=== PATIENT | male | born 1935 | race Caucasian/White ===

== ENCOUNTER 2018-09-20 12:14 | Emergency (ER) | payer MEDICARE, BC ==
[2018-09-20 12:22] VITALS: BP 108/69
[2018-09-20] MEDS ORDERED: Oxymetazoline 0.05% Nasal Spray 15 ML Bottle NAS ONE (12:58)
--- NOTE | 2018-09-20 15:52 | EDM.PDOC ---
ED HPI GENERAL MEDICAL PROBLEM - General Chief Complaint: ENT Problem Stated Complaint: NOSEBLEED Time Seen by Provider: 09/20/18 12:45 Source of Information: Reports: Patient History Limitations: Reports: No Limitations - History of Present Illness INITIAL COMMENTS - FREE TEXT/NARRATIVE: Pt. presents to ER with complaints of epistaxis from L nare. Pt. states that the bleeding started spontaneously this AM. Denies any trauma to the nose. Denies any lightheadedness or shortness of breath. No nausea or vomiting. He states that he occasionally gets nosebleeds but this one has lasted a long time. Pt. INR was 2.0 when it was checked earlier this week. He also takes plavix as well. Onset: Today Onset Date: 09/20/18 Location: Reports: Generalized - Related Data Allergies Allergy/AdvReac Type Severity Reaction Status Date / Time No Known Allergies Allergy Verified 09/20/18 12:18 Home Meds: Home Meds Arginine [l-Arginine] 1,500 mg PO DAILY 01/15/14 [History] Calcium Carbonate [Calcium] 500 mg PO DAILY 01/15/14 [History] Furosemide [Lasix] 40 mg PO BID 01/15/14 [History] Magnesium Oxide 500 mg PO DAILY 01/15/14 [History] Vit B Cmplx 3/Fa/Vit C/Biotin [Digna-Ashley Rx Tablet] 1 each PO DAILY 01/15/14 [ History] Warfarin [Coumadin] 5 mg PO DAILY 01/15/14 [History] atorvaSTATin [Lipitor] 10 mg PO DAILY 01/15/14 [History] Carvedilol [Coreg] 6.25 mg PO BID 02/18/14 [History] Lisinopril [Prinivil] 2.5 mg PO DAILY 04/03/14 [History] Clopidogrel [Plavix] 75 mg PO DAILY 10/16/16 [History] Nitroglycerin [Nitrolingual] 0.4 - 0.8 mg SL ASDIRECTED PRN 10/16/16 [History] Amoxicillin 2,000 mg PO ASDIRECTED 01/09/17 [History] Carboxymethylcellulose Sodium [Refresh Celluvisc] 1 drop EYEBOTH ASDIRECTED PRN 01/09/17 [History] Multivitamin with Minerals [Multiple Vitamin] 1 tab PO DAILY 01/09/17 [History] Ubidecarenone [Co Q-10] 200 mg PO BID 01/09/17 [History] cycloSPORINE [Restasis] 1 drop EYEBOTH DAILY 01/09/17 [History] Isosorbide Mononitrate [Imdur] 15 mg PO BID 09/04/18 [History] Past Medical History Cardiovascular History: Reports: Bypass, CAD, Heart Failure, High Cholesterol, Hypertension Respiratory History: Reports: Other (See Below) Other Respiratory History: Pneumonia Genitourinary History: Reports: Prostate Disorder - Past Surgical History Cardiovascular Surgical History: Reports: Pacer, Valve Replacement Social & Family History - Tobacco Use Smoking Status *Q: Unknown Ever Smoked ED ROS GENERAL - Review of Systems Review Of Systems: See Below Constitutional: Reports: No Symptoms HEENT: Reports: Nosebleed Respiratory: Reports: No Symptoms Cardiovascular: Reports: No Symptoms Endocrine: Reports: No Symptoms GI/Abdominal: Reports: No Symptoms : Reports: No Symptoms Musculoskeletal: Reports: No Symptoms Skin: Reports: No Symptoms Neurological: Reports: No Symptoms Psychiatric: Reports: No Symptoms Hematologic/Lymphatic: Reports: No Symptoms Immunologic: Reports: No Symptoms ED EXAM, GENERAL - Physical Exam Exam: See Below Exam Limited By: No Limitations General Appearance: Alert, WD/WN, No Apparent Distress Nose: Other (epistaxis from L nare) Throat/Mouth: Normal Inspection, Normal Lips, Normal Teeth, Normal Gums, Normal Oropharynx, Normal Voice, No Airway Compromise ED GENERAL MEDICAL PROCEDURES - Additional/Other Procedure(s) Other (Free Text) Procedure(s): area of bleeding to lateral aspect of L nare. This was cauterized with silver nitrate. Afrin nasal spray was instilled in the nare prior to this. The area continued to bleed. It was subsequently packed with 1 in gauze ribbon. This bled through. This was removed. 5.5 cm rapid rhino placed in L nare. bleeding was controlled with this. Course - Vital Signs Last Recorded V/S: Last Vital Signs Temp 35.1 C L 09/20/18 12:20 Pulse 90 09/20/18 12:20 Resp 18 09/20/18 12:20 BP 108/69 09/20/18 12:20 Pulse Ox 94 L 09/20/18 12:20 - Orders/Labs/Meds Meds: Medications Discontinued Medications Generic Name Dose Route Start Last Admin Trade Name Freq PRN Reason Stop Dose Admin Oxymetazoline HCl 1 ml 09/20/18 12:58 09/20/18 13:02 Afrin Original 0.05% Nasal [place] TYESHA 09/20/18 12:59 2 spray ONETIME ONE Administration Departure - Departure Time of Disposition: 15:30 Disposition: Home, Self-Care 01 Condition: Good Clinical Impression: Epistaxis - Discharge Information Instructions: Nosebleed, Adult Referrals: Ciera Quiroz, [Primary Care Provider] - Forms: ED Department Discharge Additional Instructions: Return to ER tomorrow afternoon to have nose packing removed. Sleep with head elevated tonight. Recheck in clinic in 7-10 days. If you are continuing to have frequent nosebleeds, you may need to see ENT to address it. You do have some superficial blood vessels in your nose. - Assessment/Plan Plan: Return to ER tomorrow afternoon to have nose packing removed. Sleep with head elevated tonight. Recheck in clinic in 7-10 days. If you are continuing to have frequent nosebleeds, you may need to see ENT to address it. You do have some superficial blood vessels in your nose.
== END 2018-09-20 14:02 | disposition home or self-care (01) ==
LOC: VM.ED 12:14
DX: R04.0 Epistaxis (principal); I11.0 Hypertensive heart disease with heart failure; I50.9 Heart failure, unspecified; Z95.1 Presence of aortocoronary bypass graft; I25.10 Atherosclerotic heart disease of native coronary artery without angina pectoris; Z79.01 Long term (current) use of anticoagulants; Z79.899 Other long term (current) drug therapy
CPT/HCPCS: 30903; 99283; A9270; 30901

== ENCOUNTER 2018-09-21 12:03 | Emergency (ER) | payer MEDICARE, BC ==
[2018-09-21 12:39] VITALS: BP 108/63
[2018-09-21] MEDS ORDERED: Take Home: Ondansetron 4 MG Tab.DIS, 2 Tab Pack PO ONE (13:16)
--- NOTE | 2018-09-21 13:22 | EDM.PDOC ---
ED HPI GENERAL MEDICAL PROBLEM - General Chief Complaint: Gastrointestinal Problem Stated Complaint: NAUSEA Time Seen by Provider: 09/21/18 13:00 Source of Information: Reports: Patient History Limitations: Reports: No Limitations - History of Present Illness INITIAL COMMENTS - FREE TEXT/NARRATIVE: patient comes into the emergency department with complaint of nausea. Patient was in the emergency department approximately 24 hours ago for a nosebleed and needed nasal packing. Patient states ever since the nasal packing was placed he has had nausea. He believes it is related to the blood that has trickled back in the back of his throat. He denies any vomiting, fever,chest pain, shortness of breath, or fevers. He feels that the bleeding has almost stopped in the back of his nose however, he is still getting a takes of blood tinge in the back of the mouth. Onset: Gradual Severity: Mild Improves with: Reports: None Worsens with: Reports: None Associated Symptoms: Reports: No Other Symptoms - Related Data Allergies Allergy/AdvReac Type Severity Reaction Status Date / Time No Known Allergies Allergy Verified 09/21/18 12:33 Home Meds: Home Meds Arginine [l-Arginine] 1,500 mg PO DAILY 01/15/14 [History] Calcium Carbonate [Calcium] 500 mg PO DAILY 01/15/14 [History] Furosemide [Lasix] 40 mg PO BID 01/15/14 [History] Magnesium Oxide 500 mg PO DAILY 01/15/14 [History] Vit B Cmplx 3/Fa/Vit C/Biotin [Digna-Ashley Rx Tablet] 1 each PO DAILY 01/15/14 [ History] Warfarin [Coumadin] 5 mg PO DAILY 01/15/14 [History] atorvaSTATin [Lipitor] 10 mg PO DAILY 01/15/14 [History] Carvedilol [Coreg] 6.25 mg PO BID 02/18/14 [History] Lisinopril [Prinivil] 2.5 mg PO DAILY 04/03/14 [History] Clopidogrel [Plavix] 75 mg PO DAILY 10/16/16 [History] Nitroglycerin [Nitrolingual] 0.4 - 0.8 mg SL ASDIRECTED PRN 10/16/16 [History] Amoxicillin 2,000 mg PO ASDIRECTED 01/09/17 [History] Carboxymethylcellulose Sodium [Refresh Celluvisc] 1 drop EYEBOTH ASDIRECTED PRN 01/09/17 [History] Multivitamin with Minerals [Multiple Vitamin] 1 tab PO DAILY 01/09/17 [History] Ubidecarenone [Co Q-10] 200 mg PO BID 01/09/17 [History] cycloSPORINE [Restasis] 1 drop EYEBOTH DAILY 01/09/17 [History] Isosorbide Mononitrate [Imdur] 15 mg PO BID 09/04/18 [History] Past Medical History Cardiovascular History: Reports: Bypass, CAD, Heart Failure, High Cholesterol, Hypertension Respiratory History: Reports: Other (See Below) Other Respiratory History: Pneumonia Genitourinary History: Reports: Prostate Disorder - Past Surgical History Cardiovascular Surgical History: Reports: Pacer, Valve Replacement Social & Family History - Tobacco Use Smoking Status *Q: Former Smoker Used Tobacco, but Quit: Yes Month/Year Tobacco Last Used: 1969 ED ROS GENERAL - Review of Systems Review Of Systems: ROS reveals no pertinent complaints other than HPI. Constitutional: Reports: No Symptoms HEENT: Reports: No Symptoms Respiratory: Reports: No Symptoms Cardiovascular: Reports: No Symptoms GI/Abdominal: Reports: Nausea : Reports: No Symptoms Musculoskeletal: Reports: No Symptoms Skin: Reports: No Symptoms Neurological: Reports: No Symptoms Psychiatric: Reports: No Symptoms Hematologic/Lymphatic: Reports: No Symptoms ED EXAM, GENERAL - Physical Exam Exam: See Below Exam Limited By: No Limitations General Appearance: Alert, WD/WN, No Apparent Distress Ears: Normal External Exam, Normal Canal Nose: Nasal Drainage, Clear Rhinorrhea, Other (nasal packing in left nare. no drainage/dripping noted. ) Throat/Mouth: Normal Inspection, Normal Oropharynx, Normal Voice Head: Atraumatic, Normocephalic Neck: Normal Inspection, Supple, Non-Tender, Full Range of Motion Respiratory/Chest: No Respiratory Distress, Lungs Clear Cardiovascular: Normal Peripheral Pulses, Regular Rate, Rhythm Course - Vital Signs Last Recorded V/S: Last Vital Signs Temp 35.6 C 09/21/18 12:33 Pulse 93 09/21/18 12:33 Resp 18 09/21/18 12:33 BP 108/63 09/21/18 12:33 Pulse Ox 95 09/21/18 12:33 - Orders/Labs/Meds Orders: Active Orders 24 hr Category Date Time Status Ondansetron [Take Home: Ondansetron ODT 4 MG, 2 Tab Med 09/21/18 13:16 Once Pack] 2 packet PO ONETIME ONE Medication Orders Ondansetron HCl (Take Home: Ondansetron Odt 4 Mg, 2 Tab Pack) 2 packet PO ONETIME ONE Stop: 09/21/18 13:17 Meds: Medications Generic Name Dose Route Start Last Admin Trade Name Elvira PRN Reason Stop Dose Admin Ondansetron HCl 2 packet 09/21/18 13:16 Take Home: Ondansetron Odt 4 Mg, 2 Tab Pack PO 09/21/18 13:17 ONETIME ONE Departure - Departure Time of Disposition: 13:20 Disposition: Home, Self-Care 01 Condition: Good Clinical Impression: Nausea alone - Discharge Information *PRESCRIPTION DRUG MONITORING PROGRAM REVIEWED*: Not Applicable *COPY OF PRESCRIPTION DRUG MONITORING REPORT IN PATIENT CHARLEY: Not Applicable Instructions: Nausea, Adult Referrals: Ciera Quiroz DO [Primary Care Provider] - Additional Instructions: 1. Will remove the nasal bandage tomorrow. 2. rest 3. If you feel blood in the back of the throat spit out and do not swallow as much as possible. 4. Take anti-nausea medication as needed 1 tablet every 6 hours only if nauseated. 5. Call with any questions or concerns - Problem List Review Problem List Initiated/Reviewed/Updated: Yes - My Orders Last 24 Hours: My Active Orders 09/21/18 13:16 Ondansetron [Take Home: Ondansetron ODT 4 MG, 2 Tab Pack] 2 packet PO ONETIME ONE - Assessment/Plan Last 24 Hours: My Active Orders 09/21/18 13:16 Ondansetron [Take Home: Ondansetron ODT 4 MG, 2 Tab Pack] 2 packet PO ONETIME ONE Assessment:: 1. nausea related to nose bleed Plan: 1. Zofran ODT given to the patient to send home for the weekend 2. Nasal packing will remain in place till tomorrow. He feels some of the draining is still present but is much better than yesterday. 3. Education, medication, and follow up given to the patient. 4. All questions and concerns addressed prior to discharge.
== END 2018-09-21 13:25 | disposition home or self-care (01) ==
LOC: VM.ED 12:03
DX: R11.0 Nausea (principal); R04.0 Epistaxis; I10 Essential (primary) hypertension; I50.9 Heart failure, unspecified; E78.00 Pure hypercholesterolemia, unspecified; I25.10 Atherosclerotic heart disease of native coronary artery without angina pectoris; Z87.891 Personal history of nicotine dependence; Z79.899 Other long term (current) drug therapy
CPT/HCPCS: 99283; 99283-GF; A9270-GY

== ENCOUNTER 2018-10-08 16:00 | Inpatient (IN) | payer MEDICARE, BC ==
[2018-10-08] MEDS ORDERED: Ondansetron 4 MG/2 ML SDV IV PRN (16:09)
[2018-10-08] MEDS ORDERED: Sodium Chloride 0.9% 10 ML Syringe FLUSH PRN (16:09)
[2018-10-08] MEDS ORDERED: Acetaminophen 325 MG Tab PO PRN (16:09)
[2018-10-08] MEDS ORDERED: Piperacillin/Tazobactam 3.375 GM in Sodium Chloride 0.9% 100 ML IV ONE (17:15)
[2018-10-08] MEDS ORDERED: Dextran 70/Hypromellose/PF Ophth Soln 0.9 ML UD EYEBOTH PRN (17:15)
[2018-10-08] MEDS ORDERED: Nitroglycerin 0.4 MG Tab.SL SL PRN (19:30)
[2018-10-08] MEDS: Carvedilol 6.25 MG Tab PO SCH (19:52)
[2018-10-08] MEDS: Tamsulosin 0.4 MG Cap.ER PO SCH (19:53)
[2018-10-08] MEDS: Warfarin 2.5 MG Tab PO SCH (19:53)
--- NOTE | 2018-10-08 23:08 | HP ---
CHIEF COMPLAINT: Chills and shortness of breath. HISTORY OF PRESENT ILLNESS: This is an 83-year-old male who walked into the clinic today because our phones were down with the start of a cough and some chills this morning, but he had been battling some sinus infections recently. He has had a previous pneumonia back in April and also a lot of issues with heart failure. 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 He has had multiple previous coronary interventions with bypass, valve surgery, stents, aortic valve KELLY procedure. EF was 30% back in 02/2018. He is not on oxygen at home, but his saturations were in the mid 80s, and on 2 L, he was up to 88% to 90%. He was noticeably cyanotic per Taylor Morales in his lips when he came in. He was on multiple layers of clothing, but his temperature was only 99.2. Otherwise, the patient's weight has been stable, but his legs have been significantly more swollen. He had followed up with me on 09/28 and had nosebleeds at that time. We talked about possibly decreasing Imdur, but at that point, no medication changes were made. ALLERGIES: None. MEDICATIONS: His medication list includes Zofran as needed for nausea; Imdur 30 mg daily; Coumadin as directed by the INR clinic with doses at 2.5 mg on Sunday, Sunday, Sunday, and 5 mg the rest of the week; nitroglycerin as needed; Demadex 20 mg twice daily; lisinopril 2.5 daily; Flomax 0.4 at bedtime; Coreg 6.25 b.i.d.; Proscar 5 mg daily; Lipitor 5 mg daily; amoxicillin before dental work; Restasis eyedrops; other eyedrops. PAST MEDICAL HISTORY: Quite extensive including the aortic stenosis, status post a KELLY procedure back in 2017. He has had BPH, needing a Grande after heart procedures. He has had chronic systolic heart failure with EF 30%. He has had coronary artery disease with VA in 1995, refused CABG, but then had CABG x4 and mitral valve surgery in 2013. He had a drug-eluting stent to the LAD then in 2017. The patient has had hyperlipidemia, previous elevated PSA, ischemic cardiomyopathy, nocturnal dyspnea, which seemed to get better after heart surgeries. He has never been on oxygen. He has had paroxysmal atrial fibrillation. He has had prediabetes. The patient has had also a tricuspid valve repair as part of his surgical that has been mentioned above as well. He had a resection of a ventricular aneurysm. He has had some stable angina. PAST SURGICAL HISTORY: Surgically, as above, he has had the numerous cardiac surgeries, but also listed pacemaker in 2014, eye surgery for cataracts. FAMILY HISTORY: Both parents are . SOCIAL HISTORY: The patient is . He has 3 children, very involved in his care. He lives with his daughter. He is a nonsmoker, nondrinker. REVIEW OF SYSTEMS: General: No recent weight changes, but again he felt chilled. No fever. [place] fatigued. HEENT: He has had sinus congestion and postnasal drainage. Rhinorrhea Respiratory: He has had cough, increasing shortness of breath. Cardiac: No chest pains, but he has had increased leg swelling. Otherwise, all systems reviewed and found to be negative unless otherwise stated. PHYSICAL EXAMINATION: Vital Signs: In the clinic today did show him to have a temperature of 99.2, weight 137 pounds, blood pressure 124/64, pulse 86, and pulse ox 85% on room air, 88% on 2 L. General: He is in no acute distress. Heart: Regular irregular with murmur appreciated. Lungs: Sound pretty good overall, but slightly decreased in the right base. Abdomen: Nondistended, nontender. Extremities: Warm and dry. He has 2+ edema. Mental Status: He is alert. He is orientated x3. LABORATORY DATA: Lab work from the clinic includes a white count of 14.7, hemoglobin 12.8, platelets 229. Glucose 160, BUN 32, creatinine 1.7. Sodium 141, potassium 4.7, chloride 99, bicarb 27, calcium 10.1. Previous creatinine was 1.6. Previous white count was normal. Chest x-ray shows a right lower lobe infiltrate. ASSESSMENT: 1. Community-acquired pneumonia, right lower lobe with sinus infection, chills, and hypoxia. The patient is admitted for acute cares. We will place him on IV Zosyn. We will get blood cultures. We will get a CRP. We will get a proBNP, troponin, and EKG. We will keep him on oxygen and continuous pulse ox. 2. Chronic ischemic cardiomyopathy and chronic systolic heart failure. I do not feel the patient is having any acute exacerbation, but we will certainly monitor him closely. We will hold off on IV fluids. We will even consider dosing his diuretic with IV. 3. Chronic renal insufficiency. Creatinine is near baseline. We will continue to monitor. 4. History of coronary artery disease, that is stable. He is not having any chest pain. 5. Acute hypoxic respiratory failure due to pneumonia. We will continue the oxygen. Discussed that patient is not appearing to need any ABGs or in any imminent respiratory failure. 6. BPH. We will check a bladder scan to ensure he is voiding okay. 7. Hyperglycemia, that is probably related to his acute illness. We will do some q.i.d. Accu-Chek. PLAN: The patient will be admitted for acute cares and treatment of pneumonia. He did have an appointment later this week for the [facility] for his heart failure. If his condition should deteriorate or he should need heart failure treatment, we can definitely work on arranging transfer. The patient did not want to have CPR resuscitation; however, his daughter, she did agree with her father's wishes, but she was not sure that they would want him to not have CPR, although Andres was very clear that he did want to go through resuscitation when I had a discussion with CHELSEA Morales in the room. The patient will be admitted for acute treatments of pneumonia. We will follow up his lab work tomorrow. Decisions for transfer to the [facility] will be based on that. MKA: 10/08/2018 16:30:18 MODL: 10/08/2018 22:59:55 /[id number] MTDD
[2018-10-09] MEDS: Piperacillin/Tazobactam 3.375 GM in Sodium Chloride 0.9% 100 ML IV SCH ×3 (01:29→18:08)
[2018-10-09 07:08] LABS: ANION GAP 11.5 mmol/L (10-20)
[2018-10-09] MEDS: Lisinopril 2.5 MG Tab PO SCH (07:41)
[2018-10-09] MEDS: Carvedilol 6.25 MG Tab PO SCH ×2 (07:42→18:10)
[2018-10-09] MEDS: Finasteride 5 MG Tab PO SCH (07:42)
[2018-10-09] MEDS: Isosorbide Mononitrate 30 MG Tab.ER PO SCH (07:42)
[2018-10-09] MEDS ORDERED: Furosemide 40 MG/4 ML VIAL IV ONE (09:35)
--- NOTE | 2018-10-09 11:36 | PN ---
Progress Note for TEE MELVIN Date: 10/09/2018 Room #: VM.214 SUBJECTIVE: Hospital day #2 on an 83-year-old admitted with pneumonia. The patient overall feels improved. His breathing is better; however, he has more abdominal swelling. He did have a bladder scan last evening, which did not show any residual, but he has had some retention issues in the past, but refuses Grande due to problems with hematuria afterwards. He otherwise is coughing a little bit during our visit. He had a T-max of 100.1, but states he had no further chills. His leg swelling has been worsened as he has been off his diuretics, but did not require any fluids. Otherwise, he had been more fatigued with poor appetite now for quite some time. He actually had an appointment arranged tomorrow for outpatient evaluation at the [facility] and heart catheterization. OBJECTIVE: Vital Signs: His weight is 64.4 kg, pulse 72, blood pressure 105/63, respiratory rate is 23, and O2 is 96% on 2 L. General: He is in no acute distress. He is resting in bed comfortably. There was an O2 saturation that went down to 81% overnight when he was off oxygen. Heart: Irregular rate and rhythm with murmur. Respiratory: Lung sounds are decreased especially over the right base, but no crackles today noted. Abdomen: Again, distended, but nontender. Extremities: Warm, dry, 3+ edema at the ankle. Mental Status: Alert and orientated x3. Neck: Supple without lymphadenopathy. JVD is appreciated. ASSESSMENT: 1. Community-acquired pneumonia versus some aspiration from when he had nosebleeds, plus he is having some sinus pain and purulent drainage after having nasal packing. He is on day #2 IV Zosyn. He is improving. His white count is normal. 2. Chronic ischemic cardiomyopathy with chronic systolic heart failure, ejection fraction around 30%. He is now having more edema and heart failure issues. We will give him a dose of 40 mg of IV Lasix. Need to watch the blood pressures closely. We will also get his legs Gavin wrapped. 3. History of urinary retention with benign prostatic hypertrophy. We will continue his home medications and do bladder scans. 4. Chronic renal insufficiency. Creatinine actually did improve today down to 1.5. 5. History of coronary artery disease, stable without chest pain. Troponin negative on admission. 6. Acute hypoxic respiratory failure due to pneumonia that is significantly improving. We will repeat a chest x-ray tomorrow. 7. Hyperglycemia. The patient is not requiring any steroids. Blood sugars did peak up to 202. We will continue to monitor. 8. Elevated bilirubin, presumably due to heart failure. We will repeat tomorrow. 9. Atrial fibrillation. He is in a paced rhythm on telemetry. His INR was 2.2. We will continue 2.5 daily. He does take 5 mg at times at home, but we will just follow another INR tomorrow. PLAN: The patient will continue acute cares. Did call the [facility], nurse Bre, , as well as the transfer line, , but after speaking with Bre and the acute problem being pneumonia, decision was made that the patient did not need to be transferred for acute heart failure as this has been a chronic problem, but we will reassess how things are going tomorrow and arrange for transfer if needed. For DVT prophylaxis, he is therapeutic on Coumadin. MKA: 10/09/2018 10:27:10 MODL: 10/09/2018 11:10:54 /[id number] ROSIO
[2018-10-09] MEDS: Warfarin 2.5 MG Tab PO SCH (19:21)
[2018-10-09] MEDS: Tamsulosin 0.4 MG Cap.ER PO SCH (19:21)
[2018-10-10] MEDS: Piperacillin/Tazobactam 3.375 GM in Sodium Chloride 0.9% 100 ML IV SCH (02:04)
[2018-10-10 07:27] LABS: ANION GAP 11.7 mmol/L (10-20)
[2018-10-10] MEDS: Finasteride 5 MG Tab PO SCH (08:47)
[2018-10-10] MEDS: Lisinopril 2.5 MG Tab PO SCH (08:48)
[2018-10-10] MEDS: Isosorbide Mononitrate 30 MG Tab.ER PO SCH (08:48)
[2018-10-10] MEDS: Carvedilol 6.25 MG Tab PO SCH ×2 (08:48→17:33)
--- NOTE | 2018-10-10 09:34 | PN ---
Progress Note for TEE MELVIN Date: 10/10/2018 Room #: VM.214 SUBJECTIVE: Hospital day #3 for an 83-year-old admitted with bilateral pneumonia, cough, and chills. He is feeling much better. He is requiring less oxygen to stay up in the upper 90s. He is denying any chest pain. He is not coughing during our visit today. He was able to empty his bladder well with only about 200 left. He has had some hematuria problems with Grande in the past. He feels like his leg swelling has significantly improved since getting a dose of IV Lasix yesterday. He did have some loose stools this morning, he attributes to his antibiotic. He is eating yogurt. OBJECTIVE: Vital Signs: His weight is 65.3 kg. Temperature 97.7, he has been afebrile in the last 24 hours; pulse 72; blood pressure 109/64; respiratory rate 16; O2 of 96 on 2 L. General: He is in no acute distress. Heart: Irregular rate and rhythm with murmur noted. Lungs: Lung sounds are clear to auscultation today without any crackles or wheezes. Abdomen: Mildly distended, but nontender. Extremities: Warm and dry. He has 1+ edema over that right ankle, 2+ over the left. Mental Status: He is alert and orientated x3. DIAGNOSTIC DATA: Lab work does show white count normal at 7.9, hemoglobin stable at 10.4, platelets 138. Sodium 142; potassium 3.7; chloride 104; bicarb 30; BUN 27; creatinine 1.6, which is near his baseline; glucose 96; bilirubin 1.1, which is improved; albumin 2.8; INR 1.9. Sputum culture is showing some Staphylococcus aureus. Chest x-ray repeated this morning does not show any increase in fluid, bilateral infiltrates still present. ASSESSMENT: 1. Community-acquired pneumonia, but concern for aspiration and sinus infection given recent nosebleeds and nasal packing. He has been improving now on day #3 Zosyn. He is afebrile with a normal white count. We will switch him over to Augmentin. We will await the culture to see, but if he was having MRSA, it would be surprising how much he is already improved. 2. Chronic ischemic cardiomyopathy with chronic systolic heart failure, now having mild exacerbation due to pneumonia and holding the diuretics for that. His ejection fraction is 30%. We will give him 40 mg of Lasix twice daily today and continue to monitor his blood pressures. 3. History of urinary retention with benign prostatic hyperplasia. We are continuing his home medications. He is emptying acceptably. 4. Chronic renal insufficiency. Creatinine near baseline. We will continue to monitor. 5. Coronary artery disease, stable without chest pain. 6. Acute hypoxic respiratory failure due to pneumonia. This is improving. We will do a home O2 evaluation prior to discharge and an overnight oxygen test due to his underlying heart failure. He may be a candidate for home oxygen. 7. Hyperglycemia due to acute illness. Blood sugars are improving. We will discontinue Accu-Cheks. 8. Elevated bilirubin due to heart failure. This is improving. 9. Atrial fibrillation, on Coumadin. We will increase him up to 5 mg daily. 10. Moderate Malnutrition PLAN: At this point, the patient will continue acute cares. We will switch his antibiotics over to oral Augmentin but get him on IV Lasix 40 mg twice daily, continue to monitor urine outputs, and hopefully, the patient will be stable for discharge home tomorrow, possibly with oxygen and follow up with [facility] in the short term for heart failure. MKA: 10/10/2018 08:53:57 MODL: 10/10/2018 09:28:35 /[id number]
[2018-10-10] MEDS: Furosemide 40 MG/4 ML VIAL IV SCH ×2 (10:04→16:03)
--- NOTE | 2018-10-10 16:44 | CR ---
[id number] RAD/RAD Chest PA And Lateral EXAM: RAD Chest PA And Lateral INDICATION: PNEUMONIA COMPARISON: None. DISCUSSION: Left chest wall cardiac conduction device. Median sternotomy wires with heart valve replacement. Cardiomediastinal silhouette is stable in size and contour. Bilateral lower lobe airspace opacification. Pulmonary hyperinflation. No pneumothorax. IMPRESSION: Bilateral lower lobe airspace opacification could represent pulmonary edema and/or bilateral infiltrates. Levi Patel DO 10/10/18 1556 Thank you for allowing us to participate in the care of your patient.
[2018-10-10] MEDS: Amoxicillin/Clavulanate K 875-125 MG Tab PO SCH (17:30)
[2018-10-10] MEDS: Tamsulosin 0.4 MG Cap.ER PO SCH (19:58)
[2018-10-10] MEDS ORDERED: Warfarin 5 MG Tab PO SCH (20:00)
[2018-10-11] MEDS ORDERED: Sodium Chloride 0.65% Nasal Spray 45 ML Bottle NAS PRN (04:24)
[2018-10-11 07:24] LABS: ANION GAP 13.7 mmol/L (10-20)
[2018-10-11] MEDS: Finasteride 5 MG Tab PO SCH (08:06)
[2018-10-11] MEDS: Lisinopril 2.5 MG Tab PO SCH (08:06)
[2018-10-11] MEDS: Isosorbide Mononitrate 30 MG Tab.ER PO SCH (08:06)
[2018-10-11] MEDS: Furosemide 40 MG/4 ML VIAL IV SCH ×2 (08:07→15:32)
[2018-10-11] MEDS: Amoxicillin/Clavulanate K 875-125 MG Tab PO SCH (08:07)
[2018-10-11] MEDS: Carvedilol 6.25 MG Tab PO SCH ×2 (08:07→17:18)
[2018-10-11] MEDS: Ondansetron 4 MG Tab.DIS PO PRN ×2 (10:55→17:48)
[2018-10-11] MEDS ORDERED: Potassium Chloride 20 MEQ Packet PO ONE ×2 (10:57→14:00)
--- NOTE | 2018-10-11 12:03 | PN ---
Progress Note for TEE MELVIN Date: 10/11/2018 Room #: .214 SUBJECTIVE: Dictation #1 on an 83-year-old hospital day #4 for acute bilateral pneumonia along with chronic systolic heart failure and exacerbation. The patient has felt quite good since being on the IV Lasix. Now, he is down another 1.2 L on fluid. His abdomen is less distended. He is breathing better. He is coughing less. He has been afebrile. Blood pressures have been running a little higher to allow for more diuresis. He otherwise did have a nosebleed prior to this admission, but has not had any nose bleeding problems here. He is chronically on Coumadin for atrial fibrillation. Bladder is emptying okay. His residual was only 175. He had an overnight oxygen test, which was mostly above 90%, had an 84%, but that was up going to the bathroom. He also had a home O2 eval today. It did not drop below 90% with activity. OBJECTIVE: Vital Signs: His temperature 97.5, pulse 73, blood pressure 125/64, respiratory rate is 14, and O2 is 93 on room air. General: He is in no acute distress. Heart: Irregularly irregular with murmur. Lungs: Lung sounds are decreased with crackles noted in both bases. Abdomen: Still slightly distended, but nontender. Extremities: Warm and dry. He has improved edema in both ankles, but still close to 2+. Mental Status: He is alert and orientated x3. LABORATORY DATA: Lab work shows white count normal at 7.3, hemoglobin 10.8, platelets 155. INR 2. Sodium 144, potassium 3.7, chloride 103, bicarb 31, BUN 25, creatinine down to 1.4, glucose 122, bilirubin 1.2. ALT and AST normal, and albumin 3.1. It should be noted he is eating 100% of his meals and has been eating poorly at home. He is having bowel movements, but denies diarrhea. ASSESSMENT AND PLAN: 1. Acute community-acquired, but probably more likely aspiration given recent nose bleeds, pneumonia. He is improving on IV Zosyn, switched over to Augmentin yesterday, but having some difficulty swallowing, so we will changeover operator to liquid Augmentin and treat for a 7-day course. White count has now normalized and he has been afebrile. Cultures showed Staph and there were no susceptibilities for knowing whether it was methicillin- resistant Staphylococcus aureus or not. However, he did not have significant white cells in his sputum and blood cultures have been negative. 2. Chronic ischemic cardiomyopathy with chronic systolic heart failure, now having a slight exacerbation, likely related to withholding diuretics in the setting of pneumonia. His EF is 30%. He has been doing well on 40 mg twice daily of Lasix. We will continue this IV today. Hopefully discharge home tomorrow. 3. Benign prostatic hyperplasia with history of urinary retention. He is on his home medications. He is voiding okay. 4. Chronic renal insufficiency, which creatinine has worsened since being on Aldactone earlier this spring. Actually, 1.4 is probably his best reading in quite some time. We will continue to monitor. 5. Coronary artery disease, stable without chest pain. 6. Acute hypoxic respiratory failure secondary to pneumonia. His oxygen status has improved significantly. He will not require oxygen on discharge. 7. Hyperglycemia due to acute illness. This has resolved. 8. Elevated bilirubin due to heart failure. This is stable. 9. Atrial fibrillation, on Coumadin. We will return to his home dosing. 10.Moderate malnutrition. PLAN: At this point, the patient will continue acute cares with IV Lasix. He will be on the liquid Augmentin twice daily. He will hopefully be stable for discharge home with plans to follow up with [facility] some time in the next week or two. I will update their coordinator. Otherwise, Dr. Sanders to follow over the weekend. The patient will likely go with home health and potential would be for an increase in his torsemide from 20 b.i.d. to 40 in the morning and 20 at noon. Probably, we would leave the rest of his medications the same other than needing Augmentin for antibiotics. MKA: 10/11/2018 10:54:17 MODL: 10/11/2018 11:24:13 /[id number]
[2018-10-11] MEDS: Amoxicillin/Clavulanate K 600-42.9 MG/5 ML Susp 125 ML Bottle PO SCH (17:19)
[2018-10-11] MEDS ORDERED: Warfarin 2.5 MG Tab PO SCH (20:00)
[2018-10-11] MEDS: Tamsulosin 0.4 MG Cap.ER PO SCH (21:25)
[2018-10-12] MEDS: Finasteride 5 MG Tab PO SCH (07:39)
[2018-10-12] MEDS: Furosemide 40 MG/4 ML VIAL IV SCH (07:39)
[2018-10-12] MEDS: Amoxicillin/Clavulanate K 600-42.9 MG/5 ML Susp 125 ML Bottle PO SCH (07:39)
[2018-10-12] MEDS: Isosorbide Mononitrate 30 MG Tab.ER PO SCH (07:41)
[2018-10-12] MEDS: Carvedilol 6.25 MG Tab PO SCH (07:41)
[2018-10-12] MEDS: Lisinopril 2.5 MG Tab PO SCH (07:41)
[2018-10-12 07:52] LABS: ANION GAP 10.5 mmol/L (10-20)
--- NOTE | 2018-10-12 09:34 | PCM.DCSUM1 ---
Discharge Summary - Hospital Course Brief History: Mr. Palomino is an 83 yo male who was admitted with pneumonia and CHF after presenting to clinic for evaluation of cough, shortness of breath, and chills. - Discharge Data Discharge Date: 10/12/18 Discharge Disposition: Home, W Home Health Agency 06 Condition: Good - Discharge Diagnosis/Problem(s) (1) CAP (community acquired pneumonia) SNOMED Code(s): 352505803 ICD Code: J18.9 - PNEUMONIA, UNSPECIFIED ORGANISM Status: Acute Current Visit: Yes Qualifiers: Laterality: unspecified laterality Qualified Code(s): J18.9 - Pneumonia, unspecified organism (2) HF (heart failure) SNOMED Code(s): 14736505 ICD Code: I50.9 - HEART FAILURE, UNSPECIFIED Status: Acute Current Visit : Yes Qualifiers: Heart failure type: systolic Heart failure chronicity: acute on chronic Qualified Code(s): I50.23 - Acute on chronic systolic (congestive) heart failure (3) Respiratory failure SNOMED Code(s): 157373354 ICD Code: J96.90 - RESPIRATORY FAILURE, UNSP, UNSP W HYPOXIA OR HYPERCAPNIA Status: Resolved Current Visit: Yes Qualifiers: Chronicity: acute Respiratory failure complication: hypoxia Qualified Code(s): J96.01 - Acute respiratory failure with hypoxia (4) Hyperglycemia SNOMED Code(s): 04694950 ICD Code: R73.9 - HYPERGLYCEMIA, UNSPECIFIED Status: Acute Current Visit : Yes (5) Elevated bilirubin SNOMED Code(s): 64912545 ICD Code: R17 - UNSPECIFIED JAUNDICE Status: Acute Current Visit: Yes (6) Paroxysmal atrial fibrillation SNOMED Code(s): 015632048 ICD Code: I48.0 - PAROXYSMAL ATRIAL FIBRILLATION Status: Chronic Current Visit: Yes (7) Anticoagulant long-term use SNOMED Code(s): 267139380 ICD Code: Z79.01 - [facility] (CURRENT) USE OF ANTICOAGULANTS Status: Chronic Current Visit: Yes (8) CAD (coronary artery disease) SNOMED Code(s): 38020918 ICD Code: I25.10 - ATHSCL HEART DISEASE OF [place] CORONARY ARTERY W/O ANG PCTRS Status: Chronic Current Visit: Yes Qualifiers: Coronary Disease-Associated Artery/Lesion type: [place] artery [place] vs. transplanted heart: [place] heart Associated angina: without angina Qualified Code(s): I25.10 - Atherosclerotic heart disease of [place] coronary artery without angina pectoris (9) Malnutrition SNOMED Code(s): 01293237 ICD Code: E46 - UNSPECIFIED PROTEIN-CALORIE MALNUTRITION Status: Acute Current Visit: Yes Qualifiers: Malnutrition type: protein-calorie malnutrition Protein-calorie malnutrition severity: moderate Qualified Code(s): E44.0 - Moderate protein- calorie malnutrition (10) BPH (benign prostatic hyperplasia) SNOMED Code(s): 669569419 ICD Code: N40.0 - BENIGN PROSTATIC HYPERPLASIA WITHOUT LOWER URINRY TRACT SYMP Status: Chronic Current Visit: Yes (11) Chronic renal insufficiency SNOMED Code(s): 089361243 ICD Code: N18.9 - CHRONIC KIDNEY DISEASE, UNSPECIFIED Status: Chronic Current Visit: Yes (12) Hyperlipidemia SNOMED Code(s): 07004237 ICD Code: E78.5 - HYPERLIPIDEMIA, UNSPECIFIED Status: Chronic Current Visit: Yes (13) Ischemic cardiomyopathy SNOMED Code(s): 138023888 ICD Code: I25.5 - ISCHEMIC CARDIOMYOPATHY Status: Chronic Current Visit: Yes (14) Pre-diabetes SNOMED Code(s): 756240121 ICD Code: R73.03 - PREDIABETES Status: Chronic Current Visit: Yes - Patient Summary/Data Operative Procedure(s) Performed: none Complications: none Consults: Consultations 10/08/18 16:14 PT Evaluation and Treatment [CONS] Routine Labs Pending at D/C: none Recommended Follow-up Testing/Procedures: none Planned Operative Procedure(s) after DC: none Hospital Course: The patient was admitted and started on IV antibiotics as well as supplemental oxygen. His cough and chills quickly improved. However, his shortness of breath did not improve much and he developed significant lower extremity edema and abdominal distension. This was felt to be a heart failure exacerbation secondary to his diuretics being held in the setting of his acute illness. He was then started on IV lasix and responded well to this. He had appropriate diuresis and significant improvement in his leg swelling as well as his shortness of breath. His abdominal distension also improved and he feels he is back down to his normal size today. He was progressively weaned off the supplemental oxygen and passed his home oxygen evaluation on 10/11. His hospitalization was complicated by hyperglycemia and hyperbilirubinemia, felt to be secondary to his acute illness and his CHF, respectively. His hospitalization was otherwise uncomplicated. He is feeling prepared for dismissal home today with plans to get set up with home health next week, follow -up with the [facility] in the next 1-2 weeks, and his PCP in October. He will complete a 7 day course of antibiotics and will also be dismissed home on a higher dose of torsemide. - Patient Instructions Diet: Usual Diet as Tolerated Activity: As Tolerated Other/Special Instructions: Recheck with Dr. Quiroz on 11/05. Home health on Discharge. Hopefully you will be seen at the [facility] soon I did notify Bre of our plan. Lab work might be checked that the [facility] if not I would like a kidney test in the clinic (bmp,mg) in 1 week you can probably have it when you get your next INR in around a week but that could also change if you have appointments and procedures planned. I would advise a banana a day or a glass of orange juice to avoid needing potassium pills on discharge. Can also use over the counter magnesium 400 mg daily but you might have to shop around for smaller pills and they can give you loose stools (potassium and magnesium are important for your heart) - Discharge Plan *PRESCRIPTION DRUG MONITORING PROGRAM REVIEWED*: No *COPY OF PRESCRIPTION DRUG MONITORING REPORT IN PATIENT CHARLEY: No Prescriptions/Med Rec: Amoxicillin/Clavulanate K [Augmentin 600-42.9 MG/5 ML Susp] 600 mg PO BIDMEALS 3 Days bottle Torsemide [Demadex] 20 mg PO DAILY #1 tab Home Medications: Home Meds Warfarin [Coumadin] 5 mg PO SUTUTHSA@20 01/15/14 [History] atorvaSTATin [Lipitor] 5 mg PO BEDTIME 01/15/14 [History] Carvedilol [Coreg] 6.25 mg PO BIDMEALS 02/18/14 [History] Lisinopril [Prinivil] 2.5 mg PO DAILY 04/03/14 [History] Nitroglycerin [Nitrolingual] 0.4 - 0.8 mg SL ASDIRECTED PRN 10/16/16 [History] Amoxicillin 2,000 mg PO ASDIRECTED 01/09/17 [History] Carboxymethylcellulose Sodium [Refresh Celluvisc] 1 drop EYEBOTH QID PRN [History] cycloSPORINE [Restasis] 1 drop EYEBOTH BID 01/09/17 [History] Isosorbide Mononitrate [Imdur] 30 mg PO DAILY 09/04/18 [History] Finasteride 5 mg PO DAILY 10/08/18 [History] Ondansetron [Zofran ODT] 4 mg PO TID PRN 10/08/18 [History] Tamsulosin [Flomax] 0.4 mg PO BEDTIME 10/08/18 [History] Warfarin [Coumadin] 2.5 mg PO MOWEFR@20 10/08/18 [History] Amoxicillin/Clavulanate K [Augmentin 600-42.9 MG/5 ML Susp] 600 mg PO BIDMEALS 3 Days bottle 10/12/18 [Rx] Torsemide 40 mg PO DAILY #0 10/12/18 [Rx] Torsemide [Demadex] 20 mg PO DAILY #1 tab 10/12/18 [Rx] - Discharge Summary/Plan Comment DC Time >30 min.: No - General Info Date of Service: 10/12/18 Subjective Update: 83 yo male hospital day #5 admitted with pneumonia and subsequent CHF exacerbation. States he is doing well today and is hoping for dismissal home. He slept well last night and was able to sleep "nearly flat." His shortness of breath is at baseline. He notes still some lower extremity edema but states this is much improved. He is also still coughing but this is also much improved. No fever or chills. He is ambulating about his room without any issues and denies any weakness. His appetite has been good and he is eating well. - Review of Systems General: Reports: No Symptoms HEENT: Reports: No Symptoms Pulmonary: Reports: No Symptoms Cardiovascular: Reports: No Symptoms Gastrointestinal: Reports: No Symptoms Genitourinary: Reports: No Symptoms Musculoskeletal: Reports: No Symptoms Skin: Reports: No Symptoms Neurological: Reports: No Symptoms - Patient Data Vitals - Most Recent: Last Vital Signs Temp 36.4 C 10/12/18 06:00 Pulse 71 10/12/18 07:41 Resp 20 10/12/18 06:00 BP 101/63 10/12/18 07:41 Pulse Ox 93 L 10/12/18 06:00 Weight - Most Recent: 65.317 kg I&O - Last 24 hours: Intake & Output 10/11/18 10/12/18 10/12/18 22:59 06:59 14:59 Intake Total 300 420 Output Total 1425 600 Balance -1425 -300 420 Lab Results - Last 24 hrs: Laboratory Results - last 24 hr 10/12/18 10/12/18 10/12/18 Range/Units 07:31 07:31 07:31 WBC 5.6 (4.0-10.0) x10^3/uL RBC 3.12 L (4.5-6.0) x10^6/uL Hgb 10.5 L (14.0-18.0) g/dL Hct 32.6 L (40.0-52.0) % MCV 104.5 H (78.0-93.0) fL MCH 33.7 H (26.0-32.0) pg MCHC 32.2 (32.0-36.0) g/dL RDW Coeff of Dayna 14.5 (10.0-15.0) % Plt Count 152 (130-400) x10^3/uL Neut % (Auto) 71.5 (50.0-80.0) % Lymph % (Auto) 15.3 L (25.0-50.0) % Bell % (Auto) 10.1 (2.0-11.0) % Eos % (Auto) 2.7 (0.0-4.0) % Baso % (Auto) 0.4 (0.2-1.2) % Sodium 143 (136-145) mmol/L Potassium 3.5 (3.5-5.1) mmol/L Chloride 103 (98-107) mmol/L Carbon Dioxide 33 H (21-32) mmol/L Anion Gap 10.5 (10-20) mmol/L BUN 22 H (7-18) mg/dL Creatinine 1.4 H (0.70-1.30) mg/dL Est Cr Clr Drug Dosing 35.64 mL/min Estimated GFR (MDRD) 48 Glucose 98 (74-106) mg/dL Calcium 9.2 (8.5-10.1) mg/dL Magnesium 1.7 L (1.8-2.4) mg/dL JOHN Results - Last 24 hrs: Microbiology 10/08/18 16:25 Aerobic Blood Culture - Preliminary Blood - Arm, Right NO GROWTH AFTER 3 DAYS Anaerobic Blood Culture - Preliminary NO GROWTH AFTER 3 DAYS 10/08/18 16:09 Gram Stain - Final Sputum - Expectorated Sputum Culture - Preliminary Staphylococcus Aureus 10/08/18 16:09 Bacterial Identification - Preliminary Sputum - Expectorated Staphylococcus Aureus Med Orders - Current: Current Medications Acetaminophen (Tylenol) 650 mg PO Q4H PRN PRN Reason: Pain (Mild 1-3)/fever Amoxicillin/Clavulanate Potassium (Augmentin 600-42.9 Mg/5 Ml Susp) 600 mg PO BIDMEALS [facility] Last Admin: 10/12/18 07:39 Dose: 5 ml Artificial Tears (Tears Naturale Free) 0 each EYEBOTH QID PRN PRN Reason: Dry Eyes Carvedilol (Coreg) 6.25 mg PO BIDMEALS [facility] Last Admin: 10/12/18 07:41 Dose: 6.25 mg Finasteride (Proscar) 5 mg PO DAILY [facility] Last Admin: 10/12/18 07:39 Dose: 5 mg Furosemide (Lasix) 40 mg IV BIDDIURETIC [facility] Last Admin: 10/12/18 07:39 Dose: 40 mg Isosorbide Mononitrate (Imdur) 30 mg PO DAILY [facility] Last Admin: 10/12/18 07:41 Dose: 30 mg Lisinopril (Prinivil) 2.5 mg PO DAILY [facility] Last Admin: 10/12/18 07:41 Dose: 2.5 mg Nitroglycerin (Nitrostat) 0.4 mg SL ASDIRECTED PRN PRN Reason: Chest Pain Ondansetron HCl (Zofran) 4 mg IV Q4H PRN PRN Reason: Nausea/Vomiting Ondansetron HCl (Zofran Odt) 4 mg PO TID PRN PRN Reason: Nausea Last Admin: 10/11/18 17:48 Dose: 4 mg Sodium Chloride (Saline Flush) 10 ml FLUSH ASDIRECTED PRN PRN Reason: Keep Vein Open Last Admin: 10/11/18 21:26 Dose: 10 ml Sodium Chloride ([place] Nasal [place]) 0 ml TYESHA Q2H PRN PRN Reason: Congestion Last Admin: 10/11/18 04:50 Dose: 1 spray Tamsulosin HCl (Flomax) 0.4 mg PO BEDTIME [facility] Last Admin: 10/11/18 21:25 Dose: 0.4 mg Warfarin Sodium (Coumadin) 5 mg PO [email or web address] [facility] Warfarin Sodium (Coumadin) 2.5 mg PO [email or web address] [facility] Last Admin: 10/11/18 19:37 Dose: 2.5 mg Discontinued Medications Amoxicillin/Clavulanate Potassium (Augmentin 875 Mg/125 Mg) 1 tab PO BIDMEALS [facility] Last Admin: 10/11/18 08:07 Dose: 1 tab Furosemide (Lasix) 40 mg IV ONETIME ONE Stop: 10/09/18 09:36 Last Admin: 10/09/18 10:47 Dose: 40 mg Piperacillin Sod/Tazobactam (Sod 3.375 gm/ Sodium Chloride) 100 mls @ 25 mls/ hr IV Q8H [facility] Last Admin: 10/10/18 02:04 Dose: 25 mls/hr Piperacillin Sod/Tazobactam (Sod 3.375 gm/ Sodium Chloride) 100 mls @ 200 mls/ hr IV ONETIME ONE Stop: 10/08/18 17:44 Last Admin: 10/08/18 17:38 Dose: 200 mls/hr Potassium Chloride (Klor-Con) 20 meq PO ONETIME ONE Stop: 10/11/18 14:01 Last Admin: 10/11/18 15:32 Dose: 20 meq Warfarin Sodium (Coumadin) 2.5 mg PO BEDTIME [facility] Last Admin: 10/09/18 19:21 Dose: 2.5 mg Warfarin Sodium (Coumadin) 5 mg PO BEDTIME [facility] Last Admin: 10/10/18 19:58 Dose: 5 mg - Exam General: Reports: Alert, Oriented, Cooperative, No Acute Distress HEENT: Reports: Pupils Equal, Pupils Reactive, Mucous Membr. Moist/[place] Neck: Reports: Supple, Trachea Midline, No Thyromegaly. Denies: Lymphadenopathy Lungs: Reports: Clear to Auscultation, Normal Respiratory Effort Cardiovascular: Reports: Regular Rate, Irregular Rhythm GI/Abdominal Exam: Normal Bowel Sounds, Soft, Non-Tender, No Organomegaly, No Distention, No Mass Extremities: Normal Inspection, Non-Tender, Pedal Edema (1+ bilaterally to just above the ankles) Skin: Reports: Warm, Dry, Intact
[2018-10-12 10:03] VITALS: BP 100/62
--- NOTE | 2018-10-12 11:43 | CR ---
[id number] RAD/RAD Chest PA And Lateral EXAM: RAD Chest PA And Lateral INDICATION: SHORTNESS OF BREATH COMPARISON: October 10, 2018. DISCUSSION: Left chest wall cardiac conduction device. Median sternotomy wires with evidence of prior heart valve replacement. Cardiomediastinal silhouette is stable in size and contour. Bilateral lower lobe airspace opacification is again identified. The left base opacification has improved when compared to the prior study. IMPRESSION: Bilateral lower lobe airspace opacification again identified with slight improvement of the left base opacification. Levi Patel DO 10/12/18 1142 Thank you for allowing us to participate in the care of your patient.
[2018-10-12] MEDS ORDERED: Warfarin 5 MG Tab PO SCH (20:00)
== END 2018-10-12 12:00 | disposition home health service (06) | DRG 291 ==
LOC: VM.MS 16:10 → PREOBSVTOIN 16:11
PROVIDERS: ADMIT Internal Medicine; ATTEND Internal Medicine
DX: I50.23 Acute on chronic systolic (congestive) heart failure (principal); J18.9 Pneumonia, unspecified organism; J96.01 Acute respiratory failure with hypoxia; E44.0 Moderate protein-calorie malnutrition; R17 Unspecified jaundice; I25.10 Atherosclerotic heart disease of native coronary artery without angina pectoris; I25.5 Ischemic cardiomyopathy; R33.8 Other retention of urine; N18.9 Chronic kidney disease, unspecified; R73.9 Hyperglycemia, unspecified; N40.1 Benign prostatic hyperplasia with lower urinary tract symptoms; I48.0 Paroxysmal atrial fibrillation; R73.03 Prediabetes; Z79.899 Other long term (current) drug therapy; Z95.1 Presence of aortocoronary bypass graft; I25.2 Old myocardial infarction; Z98.41 Cataract extraction status, right eye; Z98.42 Cataract extraction status, left eye; Z79.01 Long term (current) use of anticoagulants; Z68.22 Body mass index [BMI] 22.0-22.9, adult
CPT/HCPCS: 36415; 51798; 71046; 80048; 80053; 80076; 82962; 83605; 83735; 83880; 84484; 85025; 85610; 86140; 87040; 87070; 87077; 87186; 87205; 93005; 94760; 97161-GP; A9270-GY; J1940; J2543; J7050

== ENCOUNTER 2018-12-08 04:00 | Emergency (ER) | payer MEDICARE, BC ==
--- NOTE | 2018-12-08 05:25 | EDM.PDOC ---
ED HPI GENERAL MEDICAL PROBLEM - General Chief Complaint: General Stated Complaint: Weakness, N/V, no appetite Time Seen by Provider: 12/08/18 05:00 Source of Information: Reports: Patient, Family, Old Records History Limitations: Reports: No Limitations - History of Present Illness INITIAL COMMENTS - FREE TEXT/NARRATIVE: He presents per private vehicle with his daughter. He reports that he has had marked increase in the swelling of his legs. He was at [facility] until about 3 weeks ago. He states he had "chicken legs" when he was released. Approx 6 days ago he started having increasing edema and SOB. He had a PIC line placed at [facility] and is on continuous Dopamine infusion due to CHF. He has had nausea and dry heaves for past few days which has worsened. He reports he has not been able to eat for days. He denies fever but reports that he had chills a couple of days ago and he was given a liquid medicine by Dr. Quiroz. (I think this was Augmentin). Since this time his nausea has worsened. He denies diarrhea but has been having increased bowel movements. He states the oral pills have made him sick since DC from [facility] also. He feels very fatigued and increasingly unwell. Onset: Gradual Onset Date: 12/03/18 Duration: Getting Worse Location: Reports: Lower Extremity, Left, Lower Extremity, Right Associated Symptoms: Reports: Cough, cough w sputum, Loss of Appetite, Malaise, Nausea/Vomiting, Shortness of Breath, Weakness - Related Data Allergies Allergy/AdvReac Type Severity Reaction Status Date / Time No Known Allergies Allergy Verified 12/08/18 06:06 Home Meds: Home Meds RX: Warfarin [Coumadin] 5 mg PO SUTUTHSA@20 01/15/14 [History] RX: Nitroglycerin [Nitrolingual] 0.4 - 0.8 mg SL ASDIRECTED PRN 10/16/16 [ History] RX: Amoxicillin 2,000 mg PO ASDIRECTED 01/09/17 [History] RX: cycloSPORINE [Restasis] 1 drop EYEBOTH BID 01/09/17 [History] RX: Isosorbide Mononitrate [Imdur] 30 mg PO DAILY 09/04/18 [History] RX: Finasteride 5 mg PO DAILY 10/08/18 [History] RX: Ondansetron [Zofran ODT] 4 mg PO TID PRN 10/08/18 [History] RX: Tamsulosin [Flomax] 0.4 mg PO BEDTIME 10/08/18 [History] RX: Warfarin [Coumadin] 2.5 mg PO MOWEFR@20 10/08/18 [History] Carboxymethylcellulose Sodium [Refresh Celluvisc] 1 drop EYEBOTH QID PRN [History] Dobutamine 2mg/Ml 1 each IV .CONTINUOUS 12/13/18 [History] Furosemide [Lasix] 80 mg PO BID 12/13/18 [History] Metoclopramide [Reglan] 5 mg PO TIDAC 12/13/18 [History] RX: Dronabinol 5 mg PO BIDAC 12/13/18 [History] RX: Potassium Chloride 20 meq PO DAILY 12/13/18 [History] diphenhydrAMINE [Benadryl] 25 mg PO QID PRN 12/13/18 [History] Past Medical History Cardiovascular History: Reports: Afib, Bypass, CAD, Cardiomyopathy, Heart Failure, High Cholesterol, Hypertension, [place], Pacemaker, SOB on Exertion Other Cardiovascular History: arthrosclerosis. mitral regurgitation. cardiomyopathy. aortic stenosis Respiratory History: Reports: Other (See Below) Other Respiratory History: Pneumonia Gastrointestinal History: Reports: None Genitourinary History: Reports: Prostate Disorder Other Genitourinary History: hematuria Musculoskeletal History: Reports: Gout Endocrine/Metabolic History: Reports: None Other Endocrine/Metabolic History: prediabetes Hematologic History: Reports: Anticoagulation Therapy Immunologic History: Reports: None Oncologic (Cancer) History: Reports: None - Past Surgical History Cardiovascular Surgical History: Reports: Coronary Artery Bypass, Pacer, Valve Replacement Other Cardiovascular Surgeries/Procedures: CABG x4 GI Surgical History: Reports: None Male Surgical History: Reports: None Musculoskeletal Surgical History: Reports: None Oncologic Surgical History: Reports: None Social & Family History - Family History Neurological: Reports: Dementia - Tobacco Use Smoking Status *Q: Former Smoker Tobacco Use Within Last Twelve Months: No ED ROS GENERAL - Review of Systems Review Of Systems: See Below Constitutional: Reports: Chills, Malaise, Weakness, Fatigue, Decreased Appetite HEENT: Reports: Rhinitis Respiratory: Reports: Shortness of Breath, Cough, Sputum Cardiovascular: Reports: Dyspnea on Exertion, Edema Endocrine: Reports: Fatigue GI/Abdominal: Reports: Anorexia, Nausea, Other (dry heaves) : Reports: No Symptoms Musculoskeletal: Reports: No Symptoms Skin: Reports: No Symptoms Neurological: Reports: Difficulty Walking, Weakness Psychiatric: Reports: No Symptoms Hematologic/Lymphatic: Reports: No Symptoms Immunologic: Reports: No Symptoms ED EXAM, GENERAL - Physical Exam Exam: See Below Exam Limited By: No Limitations General Appearance: Alert, No Apparent Distress, Thin Eye Exam: Bilateral Eye: EOMI, Globe Laceration, Normal Inspection, PERRL Ears: Normal External Exam Ear Exam: Bilateral Ear: Auricle Normal, Canal Normal, TM normal Nose: Normal Inspection, Normal Mucosa Throat/Mouth: Normal Oropharynx Head: Atraumatic, Normocephalic Neck: Normal Inspection Respiratory/Chest: No Respiratory Distress, Decreased Breath Sounds, Crackles Cardiovascular: Normal Peripheral Pulses, Systolic Murmur, Irregularly Irregular Peripheral Pulses: 1+: Dorsalis Pedis (L), Dorsalis Pedis (R) GI/Abdominal: Normal Bowel Sounds, Soft, Non-Tender, No Mass Extremities: Pedal Edema, Pallor, Other (4+ pitting edema bilaterally to knee) Neurological: Alert, Oriented, Normal Cognition Psychiatric: Normal Affect, Normal Mood Skin Exam: Warm, Dry, Intact, No Rash, Pallor Lymphatic: No Adenopathy EKG INTERPRETATION EKG Date: 12/08/18 Time: 05:21 Rhythm: Other (sinus or ectopic atrial rhythm) Rate (Beats/Min): 86 P-Wave: Present QRS: Wide Course - Vital Signs Last Recorded V/S: Last Vital Signs Temp 97.7 F 12/08/18 06:45 Pulse 86 12/08/18 06:45 Resp 18 12/08/18 06:45 BP 135/75 12/08/18 06:45 Pulse Ox 95 12/08/18 06:45 - Orders/Labs/Meds Labs: Laboratory Tests 12/08/18 12/08/18 12/08/18 Range/Units 04:54 04:54 04:54 WBC 13.8 H (4.0-10.0) x10^3/uL RBC 3.37 L (4.5-6.0) x10^6/uL Hgb 11.3 L (14.0-18.0) g/dL Hct 34.7 L (40.0-52.0) % MCV 103.0 H (78.0-93.0) fL MCH 33.5 H (26.0-32.0) pg MCHC 32.6 (32.0-36.0) g/dL RDW Coeff of Dayna 17.1 H (10.0-15.0) % Plt Count 222 (130-400) x10^3/uL Neut % (Auto) 88.9 H (50.0-80.0) % Lymph % (Auto) 2.7 L (25.0-50.0) % [place] % (Auto) 8.2 (2.0-11.0) % Eos % (Auto) 0.1 (0.0-4.0) % Baso % (Auto) 0.1 L (0.2-1.2) % PT 53.4 H D (10.0-12.8) SEC INR 4.8 H (2.0-3.5) Sodium 136 (136-145) mmol/L Potassium 4.3 (3.5-5.1) mmol/L Chloride 94 L (98-107) mmol/L Carbon Dioxide 27 (21-32) mmol/L Anion Gap 19.3 (10-20) mmol/L BUN 46 H (7-18) mg/dL Creatinine 2.1 H (0.70-1.30) mg/dL Est Cr Clr Drug Dosing TNP Estimated GFR (MDRD) 30 Glucose 168 H (74-106) mg/dL Calcium 9.5 (8.5-10.1) mg/dL NT-Pro-B Natriuret Pep 29623 H (<=450) pg/mL Meds: Medications Discontinued Medications Generic Name Dose Route Start Last Admin Trade Name Chaseq PRN Reason Stop Dose Admin Cefepime HCl 2 gm 12/08/18 06:40 12/08/18 07:06 Maxipime IVPUSH 12/08/18 06:41 2 gm STAT ONE Administration Furosemide 60 mg 12/08/18 06:35 12/08/18 06:41 Lasix IV 12/08/18 06:36 60 mg ONETIME ONE Administration Ondansetron HCl 4 mg 12/08/18 05:53 12/08/18 06:02 Zofran IVPUSH 12/08/18 05:54 4 mg ONETIME ONE Administration Departure - Departure Time of Disposition: 07:00 Disposition: DC/Tfer to [facility] 02 Clinical Impression: CHF, Congestive heart failure, Pedal edema, Shortness of breath, Anticoagulant long-term use, Chronic renal insufficiency, Decreased cardiac ejection fraction , Cardiac pacemaker in situ HF (heart failure) Qualifiers: Heart failure type: combined systolic and diastolic Heart failure chronicity: acute on chronic Qualified Code(s): I50.43 - Acute on chronic combined systolic (congestive) and diastolic (congestive) heart failure - Discharge Information *PRESCRIPTION DRUG MONITORING PROGRAM REVIEWED*: Not Applicable *COPY OF PRESCRIPTION DRUG MONITORING REPORT IN PATIENT CHARLEY: Not Applicable Referrals: PCP,Unknown [Ordering Only Provider] - Forms: ED Department Discharge, Interfacility Transfer EMTALA MLP Sign Off - Signature Requirements MLP Sign Off: Yes - Assessment/Plan Assessment:: Severe decompensated end stage CHF Plan: Spoke with [facility] hospitalist radio communications superintendent and she accepted care of patient. Dr. Dhaliwal will also be involved due to continuous inotropic therapy Patient and daughter are in agreement with transfer although he preferred to stay in [place] Spoke with Dr. Stover who didn't feel comfortable taking care of patient with his conditions including continuous inotropic therapy due to severe CHF, hemophilia status Pt will be transferred per ACLS ambulance He was transferred in hemodynamically stable condition.
[2018-12-08 05:27] LABS: ANION GAP 19.3 mmol/L (10-20); CHLORIDE,CL 94 mmol/L (98-107); SODIUM,NA 136 mmol/L (136-145)
[2018-12-08] MEDS ORDERED: Ondansetron 4 MG/2 ML SDV IVPUSH ONE (05:53)
[2018-12-08 06:06] VITALS: PULSE 86
[2018-12-08] MEDS ORDERED: Furosemide 40 MG/4 ML VIAL IV ONE (06:35)
[2018-12-08] MEDS ORDERED: Cefepime 1 GM Vial IVPUSH ONE (06:40)
[2018-12-08 07:02] VITALS: BP 135/75
--- NOTE | 2018-12-09 08:11 | CR ---
[id number] RAD/RAD Chest PA And Lateral EXAM: RAD Chest PA And Lateral CLINICAL DATA: SHORTNESS OF BREATH. CHF COMPARISON: CORRELATION IS MADE WITH THE EXAM OF OCTOBER 12, 2018. FINDINGS: There are small bilateral effusions. Mediastinal sutures, a PICC line, a defibrillator, and a percutaneous prosthetic aortic valve are seen. There is mild scarring at the lung bases. There is no massimo edema. IMPRESSION: SMALL BILATERAL EFFUSIONS. Roberto Gordon MD 12/09/18 0810 Thank you for allowing us to participate in the care of your patient.
== END 2018-12-08 07:25 | disposition short-term general hospital (02) ==
LOC: VM.ED 04:00
DX: I13.0 Hypertensive heart and chronic kidney disease with heart failure and stage 1 through stage 4 chronic kidney disease, or unspecified chronic kidney disease (principal); N18.9 Chronic kidney disease, unspecified; I50.43 Acute on chronic combined systolic (congestive) and diastolic (congestive) heart failure; I50.84 End stage heart failure; R60.0 Localized edema; I48.91 Unspecified atrial fibrillation; I25.10 Atherosclerotic heart disease of native coronary artery without angina pectoris; I25.2 Old myocardial infarction; Z79.01 Long term (current) use of anticoagulants; Z95.0 Presence of cardiac pacemaker; Z79.899 Other long term (current) drug therapy; Z87.891 Personal history of nicotine dependence
CPT/HCPCS: 36415; 71046; 80048; 83880; 85025; 85610; 87040; 93005; 96374; 96375; 99285; J0692; J1940; J2405; 93010; 99284-GF

== ENCOUNTER 2018-12-13 09:23 | Inpatient (IN) | payer MEDICARE, BC ==
[2018-12-13] MEDS ORDERED: Ondansetron 4 MG Tab.DIS PO PRN (09:33)
[2018-12-13] MEDS ORDERED: Ondansetron 4 MG/2 ML SDV IV PRN (09:33)
[2018-12-13] MEDS ORDERED: Sodium Chloride 0.9% 10 ML Syringe FLUSH PRN (09:33)
[2018-12-13] MEDS ORDERED: Metoclopramide 10 MG/2 ML SDV IVPUSH PRN (09:39)
--- NOTE | 2018-12-13 10:24 | CR ---
[id number] RAD/RAD Chest PA or AP 1V EXAM: SINGLE VIEW CHEST. INDICATION: COUGH COMPARISON: CORRELATION IS MADE WITH THE EXAM OF DECEMBER 08, 2018. FINDINGS: Bibasilar infiltrates are seen with small bilateral effusions. There appears to be underlying edema. The cardiomediastinal contour is stable. A PICC line and defibrillator are seen with median sternotomy sutures. IMPRESSION: MILD TO MODERATE CHF. Roberto Gordon MD 12/13/18 5542 Thank you for allowing us to participate in the care of your patient.
--- NOTE | 2018-12-13 10:25 | CR ---
[id number] RAD/RAD Abdomen Flat Plate 1V EXAM: RAD Abdomen Flat Plate 1V INDICATION: VOMITING. COMPARISON: None. DISCUSSION: Abnormal bowel gas pattern with numerous dilated and distended loops of small bowel in the left upper quadrant. Findings are consistent with either ileus or mechanical obstruction. Contrast-enhanced CT examination of the abdomen and pelvis is recommended. IMPRESSION: As above. Shane Szymanski MD 12/13/18 1024 Thank you for allowing us to participate in the care of your patient.
[2018-12-13] MEDS ORDERED: Hypromellose 0.3% Ophth Soln 15 ML Bottle EYEBOTH PRN (10:41)
[2018-12-13] MEDS ORDERED: diphenhydrAMINE 25 MG Cap PO PRN (10:41)
[2018-12-13] MEDS ORDERED: Nitroglycerin Lingual Spray 4.9 GM Canister PRN (10:41)
[2018-12-13 11:02] LABS: ANION GAP 13.4 mmol/L (10-20)
[2018-12-13] MEDS ORDERED: Potassium Chloride Riders 10 MEQ in Premix Bag 1 BAG IV ONE (13:40)
[2018-12-13] MEDS ORDERED: Spironolactone 25 MG Tab PO ONE (13:40)
[2018-12-13] MEDS ORDERED: DOBUTAMINE IV SCH (13:45)
--- NOTE | 2018-12-13 13:58 | CT ---
[id number] CT/CT Abdomen Pelvis WO IV Exam: CT Abdomen Pelvis WO IV Clinical Data: VOMITING COMPARISON: NO PREVIOUS SIMILAR EXAM IS AVAILABLE FINDINGS: There is mild scarring at the lung bases. The lack of IV contrast limits the study somewhat. The gallbladder is slightly distended. There are gallstones. There is some thickening of the gallbladder wall with a small amount of fluid around the gallbladder. There are atheromatous changes. The liver and spleen, kidneys, adrenals, pancreas and aorta show no acute abnormalities. The pelvis shows no mass or adenopathy. There is a small amount of free fluid in the pelvis. There is a left inguinal hernia containing peritoneal fluid. IMPRESSION: CHOLECYSTOLITHIASIS AND PROBABLE CHOLECYSTITIS. Roberto Gordon MD 12/13/18 1517 Thank you for allowing us to participate in the care of your patient.
[2018-12-13] MEDS ORDERED: Furosemide 40 MG/4 ML VIAL IV SCH (14:00)
[2018-12-13] MEDS ORDERED: Piperacillin/Tazobactam 3.375 GM in Sodium Chloride 0.9% 100 ML IV SCH (15:00)
[2018-12-13] MEDS ORDERED: DRONABINOL 5 MG PO SCH (17:00)
[2018-12-13] MEDS ORDERED: DOBUTamine/Dextrose 5%-Water 250 MG/250 ML BAG IV SCH (18:00)
[2018-12-13 18:11] VITALS: BP 133/67; PULSE 89
[2018-12-13] MEDS ORDERED: Tamsulosin 0.4 MG Cap.ER PO SCH (20:00)
[2018-12-13] MEDS ORDERED: Warfarin 5 MG Tab PO SCH (20:00)
[2018-12-13] MEDS ORDERED: CYCLOSPORINE EYEBOTH SCH (20:00)
--- NOTE | 2018-12-13 23:50 | DISCH ---
CHIEF COMPLAINT: Hospital discharge followup, not able to manage at home, just feels awful, cannot even take pills due to nausea and vomiting, needing IV antibiotics and medications. He was discharged home from [place] on 12/10 after a 2-day stay for bronchitis and acute heart failure exacerbation. Actually started on Marinol for severe protein-calorie malnutrition. He has not really been able to take that. It was felt his furosemide, which was started at [facility] last month when he was started on dobutamine 2.5 mcg/kg/minute due to his EF of 30% was making him ill. He responded well to IV Lasix, but unfortunately has not even been able to take the oral Lasix, and he just has not felt very well at all. Some abdominal discomfort, sort of generalized. Weight is up 6 pounds since earlier in November. He has not had any fevers, but has felt chilled. Has still been coughing up sputum, but it is blood tinged, but his INR that was done in the clinic today was only 1.6. He is chronically on that for atrial fibrillation. He has a very complicated cardiac history including a transcatheter aortic valve replacement, CABG, mitral valve repair, and ventricular aneurysm resection back in 2013. The patient states he started having his first heart problems 20 years ago. Last stent was in 2017. He has been urinating okay as long as he is able to drink water, but he is not even always able to keep that down. He has had BPH issues in the past. He has been having diarrhea all the time. He needed a stool softener when he was in the hospital, but not now. He had been on Augmentin. Sample was taken, but did not feel that it was C. diff. He even missed Coumadin a couple days, but that was under the direction of the [facility] Clinic due to high INR. He does feel his breathing is okay. ALLERGIES: Include none. MEDICATIONS: His medication list is reviewed and includes Reglan 5 mg 3 times a day, Marinol 5 mg twice daily, Lasix 80 mg twice daily, Augmentin 500/125 mg twice daily for 3 days, Imdur 30 mg daily, Flomax 0.4 at bedtime. He was taken off his beta gio and lisinopril while at the ; Coumadin is managed by the INR clinic, he states 5 mg Sunday, Sunday, Sunday and 2.5, Sunday, , Sunday, Sunday; Benadryl 4 times a day as needed, potassium 20 mEq daily, Zofran 3 times a day as needed for nausea, dobutamine 2.5 mcg/kg/minute, nitroglycerin spray, Proscar 5 mg daily, amoxicillin before dental work, Restasis, and Refresh eye drops. PAST MEDICAL HISTORY: Again, quite complex with coronary artery disease, previous CABG and stents; chronic systolic heart failure, EF 30%; aortic stenosis status post transcatheter valve replacement; BPH; bronchitis, recent admission for that, not on any long-term inhalers; hyperlipidemia; ischemic cardiomyopathy, long-term anticoagulation, even since his original anterior [place]; paroxysmal atrial fibrillation; mitral valve repair; prediabetes; he also has a pacemaker in place. SURGICAL HISTORY: As above, in addition, he has had tricuspid valve repair at the same time of his CABG, and he has had bilateral cataract surgery. SOCIAL HISTORY: The patient is . He lives at home with his daughter. 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 He has 4 children. He is a nonsmoker. FAMILY HISTORY: Parents are . REVIEW OF SYSTEMS: General: He has gained some weight. He has had chills. HEENT: No sore throat. No trouble swallowing. Cardiac: No chest pain. No palpitations. Respiratory: He has had the cough, but has not been short of breath. Abdominal: As stated in HPI. : No burning with urination. Musculoskeletal: He has had increased edema. Otherwise, all systems reviewed and found to be negative unless otherwise stated. PHYSICAL EXAMINATION: Vital Signs: On admission to the hospital, 62.77 kg, temp 97.8, pulse 89, blood pressure 120/75, respiratory rate 18, and O2 is 94 on room air. General: He is in no acute distress. Heart: Irregularly irregular with a murmur noted. Lungs: Lung sounds are decreased with bilateral crackles in the bases. Musculoskeletal: 3+ edema up to the knee, even some trace edema at the thigh. Neck: JVD, but is supple. He has no lymphadenopathy. Musculoskeletal: Otherwise, no redness or rashes. Abdomen: Distended, but positive bowel sounds. It is nontender over the right upper quadrant, and does not have any tenderness in the left lower quadrant or massimo hernias noted. Mental Status: He is alert, he is orientated x3. He is answering all questions appropriately. He is actually dry heaving during the initial part of the exam and coughed up some blood-tinged sputum. LABORATORY DATA AND X-RAYS: Did show him to have again the INR of 1.6. Otherwise, he has had a white count 12, hemoglobin 11.2, platelets 145. Sodium 130, potassium 3.4, chloride 90, bicarb 30, BUN 30, creatinine 1.7, glucose 121, lactic 1.2, calcium 9.2, magnesium 1.8, bilirubin 2, AST 45, ALT 68, alkaline phosphatase 126. Troponin 0.114. CRP 4.2. ProBNP 13,806. Albumin 3.2, lipase 204. Abdominal x-ray was first obtained along with a chest x-ray. The chest x-ray suggested CHF and the abdominal x-ray did show dilated loops of small bowel, ileus versus small-bowel obstruction. I pursued a CT of the abdomen, which showed the gallbladder to be quite thick walled, distended with fluid around the wall and stones. Probable cholecystitis suspected. HOSPITAL COURSE: The patient was originally admitted. He was started on IV nausea medications, clear liquid diet, but after the CT, he was placed n.p.o. He was then instituted on IV Zosyn. He was also started on IV Lasix 40 mg t.i.d. from admission. He was given 1 IV dose of potassium 10 mEq and 1 oral dose of Aldactone. He did not receive any Lovenox during his stay. Despite his elevated troponin, he did not even get an EKG, however, he is paced and previous EKGs have showed a paced rhythm. Dobutamine infusion was continued at his same dosing, actually he is on 2 mg per mL concentration, but around 6 p.m. we had to switch over to ours, which is 1 mg/mL, so he will be on 8.8 mL/hour. His dosing is based on 2.5 mcg/kg/minute of weight for 58 kg, but actually he is up to 62 kg, although that is felt to be due to congestive heart failure. Discussion was had with the patient and his son regarding transfer for possible things like percutaneous interventions for the gallbladder if needed, if this is what is making him feel miserable. The patient certainly wanted to explore this. The patient is a code level 2. He would not want CPR or intubation, this was discussed with him when his daughter was present and when his son was present. The son stated whatever his father's wishes were. Therefore, patient is being transferred to [facility] to Dr. Argueta for further cares. Greater than 30 minutes spent on this admission and discharge process. FINAL DISCHARGE DIAGNOSES: 1. Intractable nausea and vomiting possibly due to acute cholecystitis. He also has leukocytosis and elevated bilirubin. 2. Acute on chronic systolic heart failure exacerbation due to not being able to take medications due to illness. 3. Chronic renal failure, creatinine around his new baseline which is 1.7. 4. Hyponatremia, probably due to heart failure and poor oral intake. Sodium 130. 5. Hypokalemia, mild, probably due to poor oral intake and diuretics when he is able to take them. He has been unable to tolerate Aldactone due to renal failure in the past. 6. Coronary artery disease, longstanding with non-ST elevation myocardial infarction due to acute illness. 7. Recent bronchitis. He was unable to complete his course of Levaquin, but he got IV Zosyn here. 8. Benign prostatic hyperplasia with history of retention. He has had difficulties with placing a Grande catheter in the past. 9. Paroxysmal atrial fibrillation, on Coumadin. Mildly subtherapeutic INR. 10.Prediabetes. 11.Moderate malnutrition due to poor oral intake. 12.Mild chronic anemia, probably anemia due to chronic disease. PLAN: The plan at this point, the patient was arranged for transfer down to [place] with ALS. Dr. Argueta, accepting physician. MKA: 12/13/2018 17:35:11 MODL: 12/13/2018 23:44:29 /[id number]
[2018-12-14] MEDS ORDERED: Finasteride 5 MG Tab PO SCH (08:00)
[2018-12-14] MEDS ORDERED: Isosorbide Mononitrate 30 MG Tab.ER PO SCH (08:00)
[2018-12-14] MEDS ORDERED: Warfarin 2.5 MG Tab PO SCH (20:00)
== END 2018-12-13 19:45 | disposition short-term general hospital (02) | DRG 292 ==
LOC: VM.MS 09:23
PROVIDERS: ADMIT Internal Medicine; ATTEND Internal Medicine
DX: I50.23 Acute on chronic systolic (congestive) heart failure (principal); K81.0 Acute cholecystitis; E87.1 Hypo-osmolality and hyponatremia; E44.0 Moderate protein-calorie malnutrition; I25.10 Atherosclerotic heart disease of native coronary artery without angina pectoris; E78.2 Mixed hyperlipidemia; R74.8 Abnormal levels of other serum enzymes; D72.829 Elevated white blood cell count, unspecified; N18.9 Chronic kidney disease, unspecified; E87.6 Hypokalemia; N40.1 Benign prostatic hyperplasia with lower urinary tract symptoms; R33.8 Other retention of urine; I48.0 Paroxysmal atrial fibrillation; R73.03 Prediabetes; D63.8 Anemia in other chronic diseases classified elsewhere; Z95.2 Presence of prosthetic heart valve; Z95.1 Presence of aortocoronary bypass graft; I25.2 Old myocardial infarction; Z98.41 Cataract extraction status, right eye; Z98.42 Cataract extraction status, left eye; Z98.890 Other specified postprocedural states; Z79.899 Other long term (current) drug therapy; Z68.21 Body mass index [BMI] 21.0-21.9, adult; Z79.01 Long term (current) use of anticoagulants; Z95.5 Presence of coronary angioplasty implant and graft
CPT/HCPCS: 36415; 71045; 74018; 74176; 80053; 83605; 83690; 83735; 83880; 84484; 85025; 86140; 87493; A9270-GY; J1250; J1940; J2543; J2765; J3480; J7050

== ENCOUNTER 2018-12-19 04:45 | Emergency (ER) | payer MEDICARE, BC ==
[2018-12-19 05:07] VITALS: BP 107/69
[2018-12-19] MEDS ORDERED: fentaNYL 100 MCG/2 ML SDV IM ONE (05:08)
--- NOTE | 2018-12-19 05:22 | EDM.PDOC ---
ED HPI GENERAL MEDICAL PROBLEM - General Chief Complaint: Lower Extremity Injury/Pain Stated Complaint: Left hip/groin pain Time Seen by Provider: 12/19/18 05:04 Source of Information: Reports: Patient, Family - History of Present Illness INITIAL COMMENTS - FREE TEXT/NARRATIVE: Andres is an 83 y/o male who comes to the ER this morning complaining of left hip pain. He was was just discharged from the hospital yesterday and denies any specific trauma, but thinks maybe when he was in the hospital the repeated puling himself up in the bed might have done something to his hip. He has taken 3 doses of Tylenol but it has not helped. He reports that the pain is bothering him so bad he can't sleep. 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 Left hip/groin Pain Score (Numeric/FACES): 6 - Related Data Allergies Allergy/AdvReac Type Severity Reaction Status Date / Time No Known Allergies Allergy Verified 12/19/18 05:07 Home Meds: Home Meds Warfarin [Coumadin] 5 mg PO SUTUTHSA@20 01/15/14 [History] Nitroglycerin [Nitrolingual] 0.4 - 0.8 mg SL ASDIRECTED PRN 10/16/16 [History] Amoxicillin 2,000 mg PO ASDIRECTED 01/09/17 [History] cycloSPORINE [Restasis] 1 drop EYEBOTH BID 01/09/17 [History] Isosorbide Mononitrate [Imdur] 30 mg PO DAILY 09/04/18 [History] Finasteride 5 mg PO DAILY 10/08/18 [History] Ondansetron [Zofran ODT] 4 mg PO TID PRN 10/08/18 [History] Tamsulosin [Flomax] 0.4 mg PO BEDTIME 10/08/18 [History] Warfarin [Coumadin] 2.5 mg PO MOWEFR@20 10/08/18 [History] Carboxymethylcellulose Sodium [Refresh Celluvisc] 1 drop EYEBOTH QID PRN [History] Dobutamine 2mg/Ml 1 each IV .CONTINUOUS 12/13/18 [History] Dronabinol 5 mg PO BIDAC 12/13/18 [History] Furosemide [Lasix] 80 mg PO BID 12/13/18 [History] Metoclopramide [Reglan] 5 mg PO TIDAC 12/13/18 [History] Potassium Chloride 20 meq PO DAILY 12/13/18 [History] diphenhydrAMINE [Benadryl] 25 mg PO QID PRN 12/13/18 [History] Past Medical History Cardiovascular History: Reports: Afib, Bypass, CAD, Cardiomyopathy, Heart Failure, High Cholesterol, Hypertension, [place], Pacemaker, SOB on Exertion Other Cardiovascular History: arthrosclerosis. mitral regurgitation. cardiomyopathy. aortic stenosis Respiratory History: Reports: Other (See Below) Other Respiratory History: Pneumonia Gastrointestinal History: Reports: None Genitourinary History: Reports: Prostate Disorder Other Genitourinary History: hematuria Musculoskeletal History: Reports: Gout Psychiatric History: Reports: None Endocrine/Metabolic History: Reports: None Other Endocrine/Metabolic History: prediabetes Hematologic History: Reports: Anticoagulation Therapy Immunologic History: Reports: None Oncologic (Cancer) History: Reports: None - Infectious Disease History Infectious Disease History: Reports: None - Past Surgical History Cardiovascular Surgical History: Reports: Coronary Artery Bypass, Pacer, Valve Replacement Other Cardiovascular Surgeries/Procedures: CABG x4 GI Surgical History: Reports: None Male Surgical History: Reports: None Musculoskeletal Surgical History: Reports: None Oncologic Surgical History: Reports: None Social & Family History - Family History Neurological: Reports: Dementia - Caffeine Use Caffeine Use: Reports: None Review of Systems - Review of Systems Review Of Systems: See Below Constitutional: Reports: No Symptoms Eyes: Reports: No Symptoms Ears: Reports: No Symptoms Nose: Reports: No Symptoms Mouth/Throat: Reports: No Symptoms Respiratory: Reports: No Symptoms Cardiovascular: Reports: No Symptoms GI/Abdominal: Reports: No Symptoms Genitourinary: Reports: No Symptoms Musculoskeletal: Reports: Joint Pain (left hip pain) Skin: Reports: No Symptoms Neurological: Reports: No Symptoms Psychiatric: Reports: No Symptoms ED EXAM, GENERAL - Physical Exam Exam: See Below General Appearance: Alert, WD/WN, No Apparent Distress Ears: Hearing Grossly Normal Nose: Normal Inspection Throat/Mouth: Normal Inspection Head: Atraumatic, Normocephalic Neck: Normal Inspection Respiratory/Chest: No Respiratory Distress GI/Abdominal: No Distention (Male) Exam: Deferred Rectal (Males) Exam: Deferred Extremities: Normal Inspection, Pedal Edema (2+ pedal edema to feet), Other ( tenderness palpated over left hip region, no deformity or bruising noted) Neurological: Alert, Oriented, CN II-XII Intact, Normal Cognition Psychiatric: Normal Affect, Normal Mood Skin Exam: Warm, Dry, Intact, No Rash, Pallor Course - Vital Signs Text/Narrative:: 0504 The patient was seen by 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 Xray was ordered. Fentanyl 50 mcg IM was given for pain. 0555 Xray results reviewed. Patient resting now. 0610 Discharge instructions are given to patient and his son and he was sent home in stable condition. Last Recorded V/S: Last Vital Signs Temp 36.3 C 12/19/18 04:55 Pulse 84 12/19/18 04:55 Resp 20 12/19/18 04:55 BP 107/69 12/19/18 04:55 Pulse Ox 92 L 12/19/18 04:55 - Orders/Labs/Meds Orders: Active Orders 24 hr Category Date Time Status Hip Min 1V w Pelvis Lt [CR] Stat Exams 12/19/18 05:09 Ordered Meds: Medications Discontinued Medications Generic Name Dose Route Start Last Admin Trade Name Elvira PRN Reason Stop Dose Admin Fentanyl 50 mcg 12/19/18 05:08 12/19/18 05:15 Sublimaze IM 12/19/18 05:09 50 mcg ONETIME ONE Administration Departure - Departure Time of Disposition: 06:12 Disposition: Home, Self-Care 01 Condition: Good Clinical Impression: Hip pain, left - Discharge Information *PRESCRIPTION DRUG MONITORING PROGRAM REVIEWED*: Not Applicable *COPY OF PRESCRIPTION DRUG MONITORING REPORT IN PATIENT CHARLEY: Not Applicable Instructions: Hip Pain, Heat Therapy, [id number] Referrals: Ciera Quirzo, [Physician] - Forms: ED Department Discharge Additional Instructions: 1)Use Tylenol Extra Strength as needed for pain 2)Apply heat as needed 3)If pain persists follow up with your PCP 4)Return to the ER for any other concerns or if your condition does not improve as expected - My Orders Last 24 Hours: My Active Orders 12/19/18 05:09 Hip Min 1V w Pelvis Lt [CR] Stat - Assessment/Plan Last 24 Hours: My Active Orders 12/19/18 05:09 Hip Min 1V w Pelvis Lt [CR] Stat
--- NOTE | 2018-12-19 07:49 | CR ---
[id number] RAD/RAD Pelvis 1V W 2V Left Hip Exam: RAD Pelvis 1V W 2V Left Hip Clinical Data: LEFT HIP PAIN COMPARISON: CORRELATION IS MADE WITH THE CAT SCAN OF DECEMBER 13, 2018 FINDINGS: No fracture or dislocation is seen. There is residual contrast in the colon. There is a mild ileus. IMPRESSION: NO FRACTURE OR DISLOCATION. Roberto Gordon MD 12/19/18 0719 Thank you for allowing us to participate in the care of your patient.
== END 2018-12-19 06:35 | disposition home or self-care (01) ==
LOC: VM.ED 04:45
DX: M25.552 Pain in left hip (principal); I25.10 Atherosclerotic heart disease of native coronary artery without angina pectoris; I48.91 Unspecified atrial fibrillation; I11.0 Hypertensive heart disease with heart failure; I50.9 Heart failure, unspecified; I25.2 Old myocardial infarction; Z95.0 Presence of cardiac pacemaker; Z79.01 Long term (current) use of anticoagulants; Z79.899 Other long term (current) drug therapy
CPT/HCPCS: 73501; 96372; 99283; J3010; 99284-GF

== ENCOUNTER 2018-12-25 15:00 | Inpatient (IN) | payer MEDICARE, BC ==
[2018-12-25] MEDS ORDERED: diphenhydrAMINE 25 MG Cap PO PRN (16:51)
[2018-12-25] MEDS ORDERED: NITROGLYCERIN TRLING PRN (16:51)
[2018-12-25] MEDS ORDERED: Menthol/Methyl Salicylate 85 GM Tube TOP PRN (16:51)
[2018-12-25] MEDS ORDERED: Hypromellose 0.3% Ophth Soln 15 ML Bottle EYEBOTH PRN (16:51)
[2018-12-25] MEDS ORDERED: DOBUTAMINE IV SCH (17:00)
[2018-12-25] MEDS: SODIUM CHLORIDE 0.9% IV SCH (18:01)
[2018-12-25] MEDS: DOBUTAMINE IV SCH (18:01)
[2018-12-25] MEDS: Furosemide 40 MG Tab PO SCH (19:16)
[2018-12-25] MEDS: Omeprazole 20 MG Cap.CR PO SCH (19:17)
[2018-12-25] MEDS: Tamsulosin 0.4 MG Cap.ER PO SCH (19:18)
--- NOTE | 2018-12-25 21:55 | PCM.HP.2 ---
H&P History of Present Illness - General Date of Service: 12/25/18 Admit Problem/Dx: Admission Diagnosis/Problem Admission Diagnosis/Problem Hematoma - History of Present Illness Initial Comments - Free Text/Narative: Admit 12/19-12/25 Mr. 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 Uponlastdischarge, he had a twisting injury to his left leg when getting into the car and immediately had pain. He was on a heparin bridge with coumadin at the time with INR 3.5. CTof pelvis noted a large pelvic hematoma within left iliacus muscle. He was given2 unitsFFP and Vitamin K replacement. Hgb was7.8, given PRBC infusion. INR and Hgb improved. Weights and fluid load high, so patient given lasix and yani wraps to decrease leg edema. INR and Hgb continued to improve and at discharge INR 1.4 and Hgb 8.4. Toward end of hospital stay patient became much more active with therapies and is looking forward to further therapies at [facility]. Patient will be going to [facility] to undergo further therapies before returning home, sent via ambulance. Patient was instructed to hold warfarin and visit with his primary care provider within a week of discharge to discuss restarting it. - Related Data Allergies/Adverse Reactions: Allergies Allergy/AdvReac Type Severity Reaction Status Date / Time No Known Allergies Allergy Verified 12/25/18 14:41 Home Medications: Home Meds Nitroglycerin [Nitrolingual] 0.4 - 0.8 mg SL ASDIRECTED PRN 10/16/16 [History] Amoxicillin 2,000 mg PO ASDIRECTED 01/09/17 [History] cycloSPORINE [Restasis] 1 drop EYEBOTH BID 01/09/17 [History] Isosorbide Mononitrate [Imdur] 30 mg PO DAILY 09/04/18 [History] Finasteride 5 mg PO DAILY 10/08/18 [History] Ondansetron [Zofran ODT] 4 mg PO TIDMEALS PRN 10/08/18 [History] Tamsulosin [Flomax] 0.4 mg PO BEDTIME 10/08/18 [History] Carboxymethylcellulose Sodium [Refresh Celluvisc] 1 drop EYEBOTH QID PRN [History] Dobutamine 2mg/Ml 1 each IV .CONTINUOUS 12/13/18 [History] Dronabinol 5 mg PO BIDAC 12/13/18 [History] Furosemide [Lasix] 80 mg PO BID 12/13/18 [History] Potassium Chloride 20 meq PO DAILY 12/13/18 [History] diphenhydrAMINE [Benadryl] 25 mg PO QID PRN 12/13/18 [History] Methyl Salicylate/Menthol [Arthritis Hot Pain Relief Crm] 1 applic TOP QID PRN 12/25/18 [History] Omeprazole 20 mg PO BEDTIME 12/25/18 [History] Past Medical History Cardiovascular History: Reports: Afib, Bypass, CAD, Cardiomyopathy, Heart Failure, High Cholesterol, Hypertension, [place], Pacemaker, SOB on Exertion Other Cardiovascular History: arthrosclerosis. mitral regurgitation. cardiomyopathy. aortic stenosis Respiratory History: Reports: Other (See Below) Other Respiratory History: Pneumonia Gastrointestinal History: Reports: None Genitourinary History: Reports: Prostate Disorder Other Genitourinary History: hematuria Musculoskeletal History: Reports: Gout Psychiatric History: Reports: None Endocrine/Metabolic History: Reports: None Other Endocrine/Metabolic History: prediabetes Hematologic History: Reports: Anticoagulation Therapy Immunologic History: Reports: None Oncologic (Cancer) History: Reports: None - Infectious Disease History Infectious Disease History: Reports: None - Past Surgical History Cardiovascular Surgical History: Reports: Coronary Artery Bypass, Pacer, Valve Replacement Other Cardiovascular Surgeries/Procedures: CABG x4 GI Surgical History: Reports: None Male Surgical History: Reports: None Musculoskeletal Surgical History: Reports: None Oncologic Surgical History: Reports: None Dermatological Surgical History: Reports: None Social & Family History - Family History Neurological: Reports: Dementia - Tobacco Use Smoking Status *Q: Former Smoker Used Tobacco, but Quit: Yes Month/Year Tobacco Last Used: Second Hand Smoke Exposure: No - Caffeine Use Caffeine Use: Reports: Coffee - Recreational Drug Use Recreational Drug Use: Yes Recreational Drug Type: Reports: Marijuana/Hashish Recreational Drug Use Frequency: Daily H&P Review of Systems - Review of Systems: Review Of Systems: See Below General: Reports: Fatigue. Denies: Fever, Chills Pulmonary: Reports: Shortness of Breath Cardiovascular: Reports: Edema Gastrointestinal: Denies: Abdominal Pain, Decreased Appetite, Nausea Genitourinary: Reports: No Symptoms Musculoskeletal: Reports: Other (hip pain). Denies: Back Pain, Joint Swelling Skin: Reports: Bruising Psychiatric: Reports: No Symptoms Neurological: Denies: Confusion Exam - Exam Exam: See Below - Vital Signs Vital Signs: Last Vital Signs Temp 97.0 F 12/25/18 18:00 Pulse 75 12/25/18 18:00 Resp 16 12/25/18 15:26 BP 110/48 L 12/25/18 18:00 Pulse Ox 95 12/25/18 18:00 Weight: 64.864 kg - Exam Quality Assessment: Other (PICC line) General: Alert, Oriented, Cooperative HEENT: Conjunctiva Clear Neck: Supple, Trachea Midline. No: JVD Lungs: Clear to Auscultation, Normal Respiratory Effort Cardiovascular: Irregular Rhythm GI/Abdominal Exam: Normal Bowel Sounds, Soft, Non-Tender Extremities: Pedal Edema (3+ to the mid cano, yani wraps loosely in place) Skin: Warm, Dry, Intact, Other (some bruising to the left thigh) Neuro Extensive - Mental Status: Alert, Oriented x3 Psychiatric: Alert, Normal Affect, Normal Mood - Problem List (1) HF (heart failure) SNOMED Code(s): 25952206 ICD Code: I50.9 - HEART FAILURE, UNSPECIFIED Status: Chronic Priority: Medium Current Visit: No Qualifiers: Heart failure type: combined systolic and diastolic Heart failure chronicity: chronic Qualified Code(s): I50.42 - Chronic combined systolic ( congestive) and diastolic (congestive) heart failure (2) Hip pain, left SNOMED Code(s): 51873305 ICD Code: M25.552 - PAIN IN LEFT HIP Status: Acute Priority: High Current Visit: Yes Problem Details: due to pelvic hematoma (3) Malnutrition SNOMED Code(s): 82463611 ICD Code: E46 - UNSPECIFIED PROTEIN-CALORIE MALNUTRITION Status: Chronic Priority: High Current Visit: No Qualifiers: Malnutrition type: protein-calorie malnutrition Protein-calorie malnutrition severity: moderate Qualified Code(s): E44.0 - Moderate protein- calorie malnutrition (4) Pedal edema SNOMED Code(s): 213473952 ICD Code: R60.0 - LOCALIZED EDEMA Status: Chronic Priority: Medium Current Visit: Yes (5) Pelvic hematoma SNOMED Code(s): 518417945 ICD Code: HTV4107 - Status: Acute Priority: High Current Visit: Yes (6) BPH (benign prostatic hyperplasia) SNOMED Code(s): 949694441 ICD Code: N40.0 - BENIGN PROSTATIC HYPERPLASIA WITHOUT LOWER URINRY TRACT SYMP Status: Chronic Priority: Medium Current Visit: No Qualifiers: Lower urinary tract symptom presence: symptoms absent Qualified Code(s): N40.0 - Benign prostatic hyperplasia without lower urinary tract symptoms (7) CAD (coronary artery disease) SNOMED Code(s): 02834706 ICD Code: I25.10 - ATHSCL HEART DISEASE OF [place] CORONARY ARTERY W/O ANG PCTRS Status: Chronic Priority: Medium Current Visit: Yes Qualifiers: Coronary Disease-Associated Artery/Lesion type: [place] artery [place] vs. transplanted heart: [place] heart Associated angina: without angina Qualified Code(s): I25.10 - Atherosclerotic heart disease of [place] coronary artery without angina pectoris (8) Chronic renal insufficiency SNOMED Code(s): 868987364 ICD Code: N18.9 - CHRONIC KIDNEY DISEASE, UNSPECIFIED Status: Chronic Priority: Medium Current Visit: No Qualifiers: Chronic kidney disease stage: stage 3 (moderate) Qualified Code(s): N18.3 - Chronic kidney disease, stage 3 (moderate) (9) Ischemic cardiomyopathy SNOMED Code(s): 564543167 ICD Code: I25.5 - ISCHEMIC CARDIOMYOPATHY Status: Chronic Priority: Medium Current Visit: Yes (10) Pacemaker SNOMED Code(s): 263762792 ICD Code: Z95.0 - PRESENCE OF CARDIAC PACEMAKER Status: Chronic Priority : High Current Visit: Yes (11) Paroxysmal atrial fibrillation SNOMED Code(s): 327179895 ICD Code: I48.0 - PAROXYSMAL ATRIAL FIBRILLATION Status: Chronic Current Visit: No Problem List Initiated/Reviewed/Updated: Yes Orders Last 24hrs: Active Orders 24 hr Category Date Time Status Patient Status [ADT] Routine ADT 12/25/18 16:49 Active Antiembolic Devices [RC] PER UNIT ROUTINE Care 12/25/18 16:51 Active Intake and Output [RC] 06,18 Care 12/25/18 16:50 Active Oxygen Therapy [RC] .PRN Care 12/25/18 16:49 Active Up With Assistance [RC] ASDIRECTED Care 12/25/18 16:49 Active VTE/DVT Education [RC] .PRN Care 12/25/18 16:49 Active Vital Signs [RC] 02,06,10,14,18,22 Care 12/25/18 16:49 Active OT Evaluation and Treatment [CONS] Routine Cons 12/25/18 16:48 Active PT Evaluation and Treatment [CONS] Routine Cons 12/25/18 16:48 Active DISPATCHER TOW TRUCK Evaluation and Treatment [CONS] Routine Cons 12/25/18 16:49 Active 2 Gram Sodium Diet [DIET] Diet 12/25/18 Dinner Active BASIC METABOLIC PANEL,BMP [CHEM] AM Lab 12/30/18 05:15 Ordered CBC WITH AUTO DIFF [HEME] AM Lab 12/30/18 05:15 Ordered DOBUTamine 250 mg Med 12/25/18 18:00 Active Sodium Chloride 0.9% [Normal Saline] 100 ml IV DAILY@1800 Dextran 70/Hypromellose [Nature's Tears Eye Drops] Med 12/25/18 16:51 Active 1 ml EYEBOTH QID PRN Finasteride [Proscar] Med 12/26/18 08:00 Active 5 mg PO DAILY Furosemide [Lasix] Med 12/25/18 20:00 Active 80 mg PO BID Isosorbide Mononitrate [Imdur] Med 12/26/18 08:00 Active 30 mg PO DAILY Menthol/Methyl Salicylate [Icy Hot Cream] Med 12/25/18 16:51 Active 0 gm TOP QID PRN Nitroglycerin [Nitrolingual] Med 12/25/18 16:51 Active 0.04 gm TRLING ASDIRECTED PRN Omeprazole Med 12/25/18 20:00 Active 20 mg PO BEDTIME Ondansetron [Zofran ODT] Med 12/25/18 16:51 Active 4 mg PO TIDMEALS PRN Potassium Chloride [Klor-Con] Med 12/26/18 08:00 Active 20 meq PO DAILY Tamsulosin [Flomax] Med 12/25/18 20:00 Active 0.4 mg PO BEDTIME cycloSPORINE [Restasis] Med 12/25/18 20:00 Pending 1 drop EYEBOTH BID diphenhydrAMINE [Benadryl] Med 12/25/18 16:51 Active 25 mg PO QID PRN Antiembolic Hose [OM.PC] Per Unit Routine Oth 12/25/18 16:50 Ordered Sequential Compression Device [OM.PC] Per Unit Routine Oth 12/25/18 16:50 Ordered Code Status [Resuscitation Status] Routine Resus Stat 12/25/18 16:03 Ordered Medication Orders Artificial Tears (Nature's Tears Eye Drops) 1 ml EYEBOTH QID PRN PRN Reason: Dry Eyes Diphenhydramine HCl (Benadryl) 25 mg PO QID PRN PRN Reason: Congestion Finasteride (Proscar) 5 mg PO DAILY [facility] Furosemide (Lasix) 80 mg PO BID [facility] Last Admin: 12/25/18 19:16 Dose: 80 mg Dobutamine HCl 250 mg/ Sodium (Chloride) 125 mls @ 4.4 mls/hr IV DAILY@1800 [facility] Last Admin: 12/25/18 18:01 Dose: 4.4 mls/hr Isosorbide Mononitrate (Imdur) 30 mg PO DAILY [facility] Methyl Salicylate (Icy Hot Cream) 0 gm TOP QID PRN PRN Reason: Cramping Nitroglycerin (Nitrolingual) 0.04 gm TRLING ASDIRECTED PRN PRN Reason: Chest Pain Non-Formulary Medication (Cyclosporine [Restasis]) 1 drop EYEBOTH BID [facility] Omeprazole (Omeprazole) 20 mg PO BEDTIME [facility] Last Admin: 12/25/18 19:17 Dose: 20 mg Ondansetron HCl (Zofran Odt) 4 mg PO TIDMEALS PRN PRN Reason: Nausea Potassium Chloride (Klor-Con) 20 meq PO DAILY [facility] Tamsulosin HCl (Flomax) 0.4 mg PO BEDTIME [facility] Last Admin: 12/25/18 19:18 Dose: 0.4 mg Assessment/Plan Comment:: 1. Left hip pain due to a pelvic hematoma at least 10.5 cm on 12/19 2. Atrial fibrillation [id number] score of 4 but increased risk of bleeding discussed with [facility] heart specialists and decision made to not restart coumadin 3. Chronic systolic CHF on palliative dobutamine infusions 4. Impaired mobility due to # 1 5. Malnutrition with improved oral intake recently 6. CAD 7. Pacemaker it is not an ICD 8. BPH 9. Previous valve surgeries no mechanical valves Plan Admit for therapies PT/OT/[facility] contact [phone] Dr. Canales was his d/c physician (attending) Dietary consult Continue dobutamine 2.5 mcg/kg/min no other infusions are planned Code status discussed patient does not want CPR but wants intubation. His son talks about shocks. I don't advise that with his condition and to do it with no CPR doesn't make sense. We will continue to discuss code status. Patient is under palliative cares but can't be on hospice with his dobutamine infusion. - Mortality Measure Prognosis:: Poor (patient has advance heart failure and is on palliative measures with a dobutamine infusion)
[2018-12-26] MEDS ORDERED: ALPRAZolam 0.25 MG Tab PO PRN ×2 (01:16→06:56)
[2018-12-26] MEDS ORDERED: Acetaminophen 500 MG Tab PO STA (01:18)
[2018-12-26] MEDS ORDERED: ALPRAZolam 0.25 MG Tab PO ONE (01:22)
[2018-12-26] MEDS ORDERED: Acetaminophen 500 MG Tab PO PRN (06:57)
[2018-12-26] MEDS: Finasteride 5 MG Tab PO SCH (08:56)
[2018-12-26] MEDS: Furosemide 40 MG Tab PO SCH ×2 (08:56→20:50)
[2018-12-26] MEDS: Isosorbide Mononitrate 30 MG Tab.ER PO SCH (08:56)
[2018-12-26] MEDS: Potassium Chloride 20 MEQ Packet PO SCH (08:57)
[2018-12-26] MEDS: CYCLOSPORINE EYE EYEBOTH SCH ×3 (11:28→20:50)
[2018-12-26] MEDS: DOBUTAMINE IV SCH (18:01)
[2018-12-26] MEDS: SODIUM CHLORIDE 0.9% IV SCH (18:01)
[2018-12-26] MEDS: Omeprazole 20 MG Cap.CR PO SCH (20:50)
[2018-12-26] MEDS: Tamsulosin 0.4 MG Cap.ER PO SCH (20:50)
[2018-12-27] MEDS: Furosemide 40 MG Tab PO SCH ×2 (08:15→15:22)
[2018-12-27] MEDS: Finasteride 5 MG Tab PO SCH (08:15)
[2018-12-27] MEDS: Isosorbide Mononitrate 30 MG Tab.ER PO SCH (08:16)
[2018-12-27] MEDS: Potassium Chloride 20 MEQ Packet PO SCH (08:17)
[2018-12-27] MEDS: CYCLOSPORINE EYE EYEBOTH SCH ×2 (08:20→19:36)
[2018-12-27] MEDS: Sodium Chloride 0.9% 10 ML Syringe FLUSH SCH ×2 (08:21→19:36)
[2018-12-27] MEDS: Ondansetron 4 MG Tab.DIS PO PRN (17:36)
[2018-12-27] MEDS: DOBUTAMINE IV SCH (17:37)
[2018-12-27] MEDS: SODIUM CHLORIDE 0.9% IV SCH (17:37)
[2018-12-27] MEDS: Omeprazole 20 MG Cap.CR PO SCH (19:35)
[2018-12-27] MEDS: Tamsulosin 0.4 MG Cap.ER PO SCH (19:36)
[2018-12-28] MEDS: CYCLOSPORINE EYE EYEBOTH SCH ×2 (08:03→20:03)
[2018-12-28] MEDS: Furosemide 40 MG Tab PO SCH ×2 (08:04→16:58)
[2018-12-28] MEDS: Finasteride 5 MG Tab PO SCH (08:04)
[2018-12-28] MEDS: Potassium Chloride 20 MEQ Packet PO SCH (08:04)
[2018-12-28] MEDS: Isosorbide Mononitrate 30 MG Tab.ER PO SCH (08:05)
[2018-12-28] MEDS: Sodium Chloride 0.9% 10 ML Syringe FLUSH SCH ×2 (08:05→20:04)
--- NOTE | 2018-12-28 11:39 | PCM.SN ---
- Free Text/Narrative Note: I visited with Andres and his son today about not restarting coumadin next week. Discussed risks in the shelter of possible stroke but risks of bleeding in the short term. Risks outweigh benefits. He still has weakness in that left let but the pain is better. He had a large pelvic hematoma due to coumadin and heparin. He has limited life expectancy due to heart failure. His son is asking appropriate questions about what might happen in a few weeks if he goes home and they are hoping to get some extra help for him. He lives with his daughter but she works during the day. He might be able to go on home health again they felt he wasn't a candidate before. He is eating better now. Possibly due to improvement in diuresis and changes in medications. They remember being told they could probably unhook his dobutamine infusions for up to 15 minutes during the teaching so we will confirm that and look at starting some OT dressing next week. All questions were answered. Continue therapies. Lab due Sunday.
[2018-12-28] MEDS: SODIUM CHLORIDE 0.9% IV SCH (17:01)
[2018-12-28] MEDS: DOBUTAMINE IV SCH (17:01)
[2018-12-28] MEDS: Ondansetron 4 MG Tab.DIS PO PRN (17:56)
[2018-12-28] MEDS: Tamsulosin 0.4 MG Cap.ER PO SCH (20:03)
[2018-12-28] MEDS: Omeprazole 20 MG Cap.CR PO SCH (20:03)
[2018-12-29] MEDS: Furosemide 40 MG Tab PO SCH ×2 (08:38→15:32)
[2018-12-29] MEDS: Finasteride 5 MG Tab PO SCH (08:38)
[2018-12-29] MEDS: Isosorbide Mononitrate 30 MG Tab.ER PO SCH (08:38)
[2018-12-29] MEDS: CYCLOSPORINE EYE EYEBOTH SCH ×2 (08:39→20:44)
[2018-12-29] MEDS: Potassium Chloride 20 MEQ Packet PO SCH (08:39)
[2018-12-29] MEDS: Sodium Chloride 0.9% 10 ML Syringe FLUSH SCH ×2 (08:42→22:58)
[2018-12-29] MEDS: Ondansetron 4 MG Tab.DIS PO PRN ×2 (10:54→17:58)
[2018-12-29] MEDS: DOBUTAMINE IV SCH (17:58)
[2018-12-29] MEDS: SODIUM CHLORIDE 0.9% IV SCH (17:58)
[2018-12-29] MEDS: Omeprazole 20 MG Cap.CR PO SCH (20:44)
[2018-12-29] MEDS: Tamsulosin 0.4 MG Cap.ER PO SCH (20:44)
[2018-12-30 07:16] LABS: ANION GAP 10.8 mmol/L (10-20)
[2018-12-30] MEDS: Finasteride 5 MG Tab PO SCH (07:50)
[2018-12-30] MEDS: Ondansetron 4 MG Tab.DIS PO PRN ×3 (07:50→17:51)
[2018-12-30] MEDS: Isosorbide Mononitrate 30 MG Tab.ER PO SCH (07:52)
[2018-12-30] MEDS: Potassium Chloride 20 MEQ Packet PO SCH (07:53)
[2018-12-30] MEDS: Furosemide 40 MG Tab PO SCH ×2 (07:53→16:31)
[2018-12-30] MEDS: CYCLOSPORINE EYE EYEBOTH SCH ×2 (07:54→19:46)
[2018-12-30] MEDS: Sodium Chloride 0.9% 10 ML Syringe FLUSH SCH ×3 (10:42→23:43)
[2018-12-30] MEDS: SODIUM CHLORIDE 0.9% IV SCH (17:53)
[2018-12-30] MEDS: DOBUTAMINE IV SCH (17:53)
--- NOTE | 2018-12-30 18:16 | PN ---
Progress Note for TEE MELVIN Date: 12/30/2018 Room #: VM.214 SUBJECTIVE: This is an 83-year-old on swing bed, recovering after a left pelvic hematoma. Lab work today showed a stable hemoglobin at 8.3. Platelets and creatinine were actually improved. His leg swelling is actually improved. He is tolerating the Lasix 80 mg twice daily. His weight was 65 kg, which is mostly stable since admission. He is breathing okay. He has been eating well, tolerating a diet, up to 100% of most meals. He has not had much of a cough. OBJECTIVE: Vital Signs: His temperature 97.4, pulse 80, blood pressure 118/45, respiratory rate is 16, and O2 of 95% on room air. General: He is in no acute distress. Heart: His heart has regular rate and rhythm noted. Lungs: His lung sounds are slightly decreased in the bases but no crackles or wheezes. Extremities: Warm and dry. He does have 1+ edema to the shins with Gavin wraps in place. Mental Status: He is alert. He is orientated x3. ASSESSMENT AND PLAN: 1. Left pelvic hematoma due to anticoagulation. Decision has been made given his heart failure to not restart Coumadin. 2. Left hip pain, improved. He is working with therapies, trying to gain some strength. 3. Atrial fibrillation. He has a pacemaker in place. He is off Coumadin. We had already discussed the stroke and bleeding risk with him, and he is agreeable not to restart Coumadin. 4. Impaired mobility due to #1. He is working with therapies. We will ensure that he can get his dobutamine disconnected for about 15 minutes to work with occupational therapy. We will confirm that with the [facility]. 5. Malnutrition, with improved oral intake. 6. Coronary artery disease, stable, without chest pain. 7. BPH. No voiding concerns. PLAN: At this point, the patient will continue swing bed cares. We will reconsult OT when he is able to do dressing. We will continue his dobutamine infusions. He has a palliative care status. MKA: 12/30/2018 17:10:04 MODL: 12/30/2018 18:03:01 /[id number]
[2018-12-30] MEDS: Omeprazole 20 MG Cap.CR PO SCH (19:46)
[2018-12-30] MEDS: Tamsulosin 0.4 MG Cap.ER PO SCH (19:46)
[2018-12-31] MEDS: Ondansetron 4 MG Tab.DIS PO PRN ×2 (07:55→11:17)
[2018-12-31] MEDS: Potassium Chloride 20 MEQ Packet PO SCH (07:57)
[2018-12-31] MEDS: Furosemide 40 MG Tab PO SCH ×2 (07:57→17:15)
[2018-12-31] MEDS: Finasteride 5 MG Tab PO SCH (07:57)
[2018-12-31] MEDS: Isosorbide Mononitrate 30 MG Tab.ER PO SCH (07:57)
[2018-12-31] MEDS: Sodium Chloride 0.9% 10 ML Syringe FLUSH SCH ×2 (08:44→21:07)
[2018-12-31] MEDS: CYCLOSPORINE EYE EYEBOTH SCH ×2 (08:44→21:03)
[2018-12-31] MEDS: Metoclopramide 5 MG Tab PO PRN (13:27)
[2018-12-31] MEDS: Ondansetron 4 MG Tab.DIS PO SCH (17:14)
[2018-12-31] MEDS: DOBUTAMINE IV SCH (17:15)
[2018-12-31] MEDS: SODIUM CHLORIDE 0.9% IV SCH (17:15)
[2018-12-31] MEDS: Tamsulosin 0.4 MG Cap.ER PO SCH (21:03)
[2018-12-31] MEDS: Omeprazole 20 MG Cap.CR PO SCH (21:03)
[2019-01-01] MEDS: CYCLOSPORINE EYE EYEBOTH SCH ×2 (07:29→19:56)
[2019-01-01] MEDS: Isosorbide Mononitrate 30 MG Tab.ER PO SCH (07:30)
[2019-01-01] MEDS: Potassium Chloride 20 MEQ Packet PO SCH (07:30)
[2019-01-01] MEDS: Finasteride 5 MG Tab PO SCH (07:30)
[2019-01-01] MEDS: Sodium Chloride 0.9% 10 ML Syringe FLUSH SCH ×2 (07:31→20:09)
[2019-01-01] MEDS: Ondansetron 4 MG Tab.DIS PO SCH ×3 (07:31→17:17)
[2019-01-01] MEDS: Furosemide 40 MG Tab PO SCH ×2 (07:31→17:18)
--- NOTE | 2019-01-01 13:00 | PCM.SN ---
- Free Text/Narrative Note: Nausea better today we added prn reglan. Spot on his back a skin colored papule that was irritating him it is now covered. It doesn't look worrisome.
[2019-01-01] MEDS: DOBUTAMINE IV SCH (17:15)
[2019-01-01] MEDS: SODIUM CHLORIDE 0.9% IV SCH (17:15)
[2019-01-01] MEDS: Tamsulosin 0.4 MG Cap.ER PO SCH (19:57)
[2019-01-01] MEDS: Omeprazole 20 MG Cap.CR PO SCH (19:57)
[2019-01-02] MEDS: CYCLOSPORINE EYE EYEBOTH SCH ×2 (07:34→20:25)
[2019-01-02] MEDS: Ondansetron 4 MG Tab.DIS PO SCH ×3 (07:35→17:46)
[2019-01-02] MEDS: Potassium Chloride 20 MEQ Packet PO SCH (07:35)
[2019-01-02] MEDS: Isosorbide Mononitrate 30 MG Tab.ER PO SCH (07:36)
[2019-01-02] MEDS: Furosemide 40 MG Tab PO SCH ×2 (07:36→16:27)
[2019-01-02] MEDS: Finasteride 5 MG Tab PO SCH (07:36)
[2019-01-02] MEDS: Sodium Chloride 0.9% 10 ML Syringe FLUSH SCH ×2 (07:36→20:26)
[2019-01-02] MEDS: Metoclopramide 5 MG Tab PO PRN (11:00)
[2019-01-02] MEDS: SODIUM CHLORIDE 0.9% IV SCH (17:46)
[2019-01-02] MEDS: DOBUTAMINE IV SCH (17:46)
--- NOTE | 2019-01-02 17:50 | PN ---
Progress Note for TEE MELVIN Date: 01/02/2019 Room #: VM.214 SUBJECTIVE: This is an 83-year-old on swing bed. He started having more nausea again this week. He thinks it is from his Lasix. He feels worse after those pills. He has gained about 4 pounds. He still continues to have a lot of leg swelling. He had similar nausea problems with furosemide. He says that the IV Lasix has worked best for him. He did see the speech therapist. They recommended a swallow evaluation. We did try some Reglan, that has been helping his nausea along with scheduled Zofran. He is still eating over 50% of his meals. His pain is still in his leg, but it is improving. He is using the walker. We did not get approval yet from the [facility] to disconnect dobutamine for up to 15 minutes to work with OT and dressing. They did say the half-life was quite short. Therefore, we have put that off, and he is working mostly with Physical Therapy. OBJECTIVE: Vital Signs: His weight is 66.3 kg, temp 97.3, pulse 81, blood pressure 123/61, respiratory rate 14, and O2 of 96% on room air. General: The only exam I did perform today was legs, to be 3+ edema. He is resting in bed. His son is there visiting him. LABORATORY DATA: His lab work, which was done on Sunday, did show hemoglobin stable at 8.3. Creatinine was actually improved down to 1.3, and his potassium was 3.8. ASSESSMENT: 1. Persistent nausea. The patient feels that the diuretics are contributing. He is agreeable to try Bumex. I am actually going to try slight change to 2 mg 3 times a day. I will repeat his lab work Sunday mainly to make sure his potassium is okay. I will also get another hemoglobin then and magnesium level. 2. Chronic systolic heart failure, on dobutamine infusions. We will see how he does with the Bumex and make adjustments as needed. Aldactone is a consideration. He had some renal insufficiency with that in the past, but now he is in the hospital and being monitored. I would certainly do that prior to adding him on potassium. 3. Left hip pain due to hematoma. This is improving. 4. Atrial fibrillation and pacemaker. The decision was made not to restart Coumadin. 5. Malnutrition. He has had improved oral intake. 6. Coronary artery disease, stable and without chest pain. 7. Benign prostatic hyperplasia. He has no voiding concerns. PLAN: At this point, the patient will continue swing bed. He will continue to work with therapies. We will continue to do dobutamine infusions. We will try the oral Bumex with lab work on Sunday. MKA: 01/02/2019 16:32:14 MODL: 01/02/2019 17:39:27 /[id number] MTDD
[2019-01-02] MEDS: Omeprazole 20 MG Cap.CR PO SCH (20:26)
[2019-01-02] MEDS: Tamsulosin 0.4 MG Cap.ER PO SCH (20:26)
[2019-01-03] MEDS: Bumetanide 1 MG Tab PO SCH ×3 (07:59→16:51)
[2019-01-03] MEDS: Isosorbide Mononitrate 30 MG Tab.ER PO SCH (07:59)
[2019-01-03] MEDS: Ondansetron 4 MG Tab.DIS PO SCH ×3 (07:59→17:41)
[2019-01-03] MEDS: Finasteride 5 MG Tab PO SCH (07:59)
[2019-01-03] MEDS: Potassium Chloride 20 MEQ Packet PO SCH (08:03)
[2019-01-03] MEDS: Sodium Chloride 0.9% 10 ML Syringe FLUSH SCH ×2 (10:38→19:43)
[2019-01-03] MEDS: Metoclopramide 5 MG Tab PO PRN (10:39)
[2019-01-03] MEDS: CYCLOSPORINE EYE EYEBOTH SCH ×2 (10:40→19:44)
--- NOTE | 2019-01-03 13:00 | CR ---
[id number] RAD/RAD Chest PA And Lateral EXAM: RAD Chest PA And Lateral CLINICAL DATA: COUGH COMPARISON: CORRELATION IS MADE WITH THE EXAM OF DECEMBER 13, 2018 FINDINGS: Small to moderate bilateral effusions are seen There is minimal edema There is scarring at the lung bases Cardiac surgical changes, a PICC line, a pacemaker, and a prosthetic aortic valve are seen IMPRESSION: MILD CHF Roberto Gordon MD 01/03/19 [id number] Thank you for allowing us to participate in the care of your patient.
[2019-01-03] MEDS: SODIUM CHLORIDE 0.9% IV SCH (18:11)
[2019-01-03] MEDS: DOBUTAMINE IV SCH (18:11)
--- NOTE | 2019-01-03 18:16 | PN ---
Progress Note for TEE MELVIN Date: 01/03/2019 Room #: VM.214 SUBJECTIVE: This is an 83-year-old on swing bed, recovering after an acute on chronic diastolic heart failure exacerbation and a left thigh hematoma. He had some nausea this morning, but it was better after his pills. We switched his Lasix to Bumex, which is now 3 times a day, just yesterday. He states that he is coughing a little bit more today, wondering if he is getting pneumonia back. He has had no fevers. X-ray showed mild CHF. We discussed if the Bumex adjustments do not work, then very likely we will be trying some IV Lasix next week. The patient is already ordered for lab work Sunday. OBJECTIVE: Heart: Irregular with murmur noted. Lungs: He did have some decreased lung sounds with crackles noted, more so in the right base. Extremities: Do show 2+ edema in his shins. The patient has not been using oxygen. Son reported he had a little bit of bloody sputum when he coughed up. He is now off Coumadin. MKA: 01/03/2019 17:06:55 MODL: 01/03/2019 18:08:17 /[id number]
[2019-01-03] MEDS: Omeprazole 20 MG Cap.CR PO SCH (19:43)
[2019-01-03] MEDS: Tamsulosin 0.4 MG Cap.ER PO SCH (19:43)
[2019-01-04] MEDS: Ondansetron 4 MG Tab.DIS PO SCH ×3 (09:30→17:18)
[2019-01-04] MEDS: Finasteride 5 MG Tab PO SCH (09:31)
[2019-01-04] MEDS: Bumetanide 1 MG Tab PO SCH ×3 (09:32→16:25)
[2019-01-04] MEDS: Potassium Chloride 20 MEQ Packet PO SCH (09:32)
[2019-01-04] MEDS: Isosorbide Mononitrate 30 MG Tab.ER PO SCH (09:32)
[2019-01-04] MEDS: CYCLOSPORINE EYE EYEBOTH SCH ×2 (09:33→20:27)
[2019-01-04] MEDS: Sodium Chloride 0.9% 10 ML Syringe FLUSH SCH ×2 (09:35→20:28)
[2019-01-04] MEDS: DOBUTAMINE IV SCH (17:16)
[2019-01-04] MEDS: SODIUM CHLORIDE 0.9% IV SCH (17:16)
[2019-01-04] MEDS: Omeprazole 20 MG Cap.CR PO SCH (20:28)
[2019-01-04] MEDS: Tamsulosin 0.4 MG Cap.ER PO SCH (20:28)
[2019-01-05] MEDS: Bumetanide 1 MG Tab PO SCH ×3 (08:17→16:23)
[2019-01-05] MEDS: Ondansetron 4 MG Tab.DIS PO SCH ×3 (08:17→17:40)
[2019-01-05] MEDS: Isosorbide Mononitrate 30 MG Tab.ER PO SCH (08:18)
[2019-01-05] MEDS: Finasteride 5 MG Tab PO SCH (08:19)
[2019-01-05] MEDS: Potassium Chloride 20 MEQ Packet PO SCH (08:20)
[2019-01-05] MEDS: CYCLOSPORINE EYE EYEBOTH SCH ×2 (08:21→19:37)
[2019-01-05] MEDS: Sodium Chloride 0.9% 10 ML Syringe FLUSH SCH ×2 (08:59→19:38)
[2019-01-05] MEDS: DOBUTAMINE IV SCH (17:41)
[2019-01-05] MEDS: SODIUM CHLORIDE 0.9% IV SCH (17:41)
[2019-01-05] MEDS: Omeprazole 20 MG Cap.CR PO SCH (19:37)
[2019-01-05] MEDS: Tamsulosin 0.4 MG Cap.ER PO SCH (19:38)
[2019-01-06 07:47] LABS: ANION GAP 11.3 mmol/L (10-20)
[2019-01-06] MEDS: Ondansetron 4 MG Tab.DIS PO SCH ×3 (08:11→17:37)
[2019-01-06] MEDS: Potassium Chloride 20 MEQ Packet PO SCH (08:12)
[2019-01-06] MEDS: Isosorbide Mononitrate 30 MG Tab.ER PO SCH (08:14)
[2019-01-06] MEDS: Bumetanide 1 MG Tab PO SCH ×3 (08:15→16:35)
[2019-01-06] MEDS: Finasteride 5 MG Tab PO SCH (08:16)
[2019-01-06] MEDS: CYCLOSPORINE EYE EYEBOTH SCH ×2 (08:18→19:49)
[2019-01-06] MEDS: Sodium Chloride 0.9% 10 ML Syringe FLUSH SCH ×2 (08:20→19:00)
[2019-01-06] MEDS ORDERED: Barium Sulfate 98% Powder for Susp 340 GM Bottle ONE (09:30)
[2019-01-06] MEDS ORDERED: Barium Sulfate 60% w/w Esophageal Crm 454 GM Tube ONE (09:30)
[2019-01-06] MEDS: Magnesium Oxide 400 MG Tab PO SCH (09:50)
[2019-01-06] MEDS: Spironolactone 25 MG Tab PO SCH (09:50)
[2019-01-06] MEDS: Metoclopramide 5 MG Tab PO PRN (11:34)
--- NOTE | 2019-01-06 13:46 | CR ---
[id number] RAD/RAD Video Swallow Study EXAM: VIDEO SWALLOWING STUDY INDICATION: DIFFICULTY SWALLOWING. COMPARISON: None. DISCUSSION: Multiple consistencies of barium were administered orally under fluoroscopic observation. This was performed in conjunction with speech pathology, refer to their report for full details. IMPRESSION: 1. As above. Levi Patel DO 01/06/19 [id number] Thank you for allowing us to participate in the care of your patient.
[2019-01-06] MEDS: SODIUM CHLORIDE 0.9% IV SCH (18:45)
[2019-01-06] MEDS: DOBUTAMINE IV SCH (18:45)
[2019-01-06] MEDS: Tamsulosin 0.4 MG Cap.ER PO SCH (19:50)
[2019-01-06] MEDS: Omeprazole 20 MG Cap.CR PO SCH (19:50)
[2019-01-07 07:02] LABS: ANION GAP 8.4 mmol/L (10-20)
[2019-01-07] MEDS: Sodium Chloride 0.9% 10 ML Syringe FLUSH SCH ×2 (07:25→20:40)
[2019-01-07] MEDS: Ondansetron 4 MG Tab.DIS PO SCH ×3 (07:25→17:26)
[2019-01-07] MEDS: Bumetanide 1 MG Tab PO SCH ×3 (07:26→16:24)
[2019-01-07] MEDS: Spironolactone 25 MG Tab PO SCH (07:26)
[2019-01-07] MEDS: Finasteride 5 MG Tab PO SCH (07:26)
[2019-01-07] MEDS: Potassium Chloride 20 MEQ Packet PO SCH (07:26)
[2019-01-07] MEDS: Magnesium Oxide 400 MG Tab PO SCH (07:26)
[2019-01-07] MEDS: Isosorbide Mononitrate 30 MG Tab.ER PO SCH (07:26)
[2019-01-07] MEDS: CYCLOSPORINE EYE EYEBOTH SCH ×2 (07:28→20:40)
[2019-01-07] MEDS: Metoclopramide 5 MG Tab PO PRN (09:58)
[2019-01-07] MEDS: DOBUTAMINE IV SCH (17:21)
[2019-01-07] MEDS: SODIUM CHLORIDE 0.9% IV SCH (17:21)
[2019-01-07] MEDS: Omeprazole 20 MG Cap.CR PO SCH (20:40)
[2019-01-07] MEDS: Tamsulosin 0.4 MG Cap.ER PO SCH (20:40)
[2019-01-08] MEDS: Ondansetron 4 MG Tab.DIS PO SCH ×3 (07:47→17:03)
[2019-01-08] MEDS: Potassium Chloride 20 MEQ Packet PO SCH (07:47)
[2019-01-08] MEDS: Finasteride 5 MG Tab PO SCH (07:48)
[2019-01-08] MEDS: Bumetanide 1 MG Tab PO SCH ×3 (07:48→17:03)
[2019-01-08] MEDS: Spironolactone 25 MG Tab PO SCH (07:49)
[2019-01-08] MEDS: Magnesium Oxide 400 MG Tab PO SCH (07:49)
[2019-01-08] MEDS: Isosorbide Mononitrate 30 MG Tab.ER PO SCH (07:50)
[2019-01-08] MEDS: CYCLOSPORINE EYE EYEBOTH SCH ×2 (07:52→19:35)
--- NOTE | 2019-01-08 10:19 | PN ---
Progress Note for TEE MELVIN Date: 01/07/2019 Room #: VM.214 SUBJECTIVE: This is an 83-year-old on swing bed receiving therapies since 12/25/2018 for difficulty with ambulation due to a left thigh hematoma. He had increasing nausea last week. We switched his 80 mg of Lasix twice daily to Bumex and he seems to be tolerating that better, he is taking 2 mg three times a day. He also had a chest x-ray that was suggesting increased CHF and he feels better now that he is wearing oxygen more. The only pain he has is in the left hip, it feels sort of numb in his leg, it almost gives out, but he is able to walk with PT and a front wheel walker with assist of 1 to 2. He otherwise had been doing some coughing that is why we did the x-ray as well. There was no pneumonia. He is not having any fevers. He did have a swallowing eval that did okay, but we will be working with speech therapy and alternating liquids and solids. He has not been able to do dressing due to his IV pole from the dobutamine. COUNTS INCLUDE 234 BEDS AT THE [facility] nursing had reported that he should not disconnect it due to the short half-life. I had not talked to the physician yet myself. OBJECTIVE: Vital Signs: His weight was 67 kg reported which had been up since previous, temperature 98, pulse 65, blood pressure 127/65, respiratory rate 20, O2 of 97% on 2 L. General: He is in no acute distress. Heart: Irregular. Lungs: Sounds are decreased with fine crackles in both bases. Abdomen: Slightly distended but nontender. I suspect it is fluid. Extremities: Warm and dry, 2+ edema. Mental Status: He is alert. He is orientated x3. He is answering questions. LABORATORY DATA: Lab work done did show hemoglobin stable at 8.4, platelets 136, white count normal. Sodium 136, potassium 3.4, chloride 97, bicarb 34, BUN 20, creatinine 1.3, AST 1.2. Alkaline phosphatase 127, albumin 2.4. ASSESSMENT AND PLAN: 1. Acute on chronic systolic heart failure. He has a known ejection fraction around 30%. He is on the dobutamine. We have added Aldactone. He did not tolerate it in the past due to renal insufficiency and hyperkalemia. He was on an JUN inhibitor then. We will continue to monitor lab work closely. Repeat in 1 week. 2. Impaired mobility due to the left hip hematoma. He is working with therapies. Social work will have a discussion with the family today considering other placement options if he is unable to go home. I have also discussed this with him briefly as well considering getting more help in the home or even if his daughter might consider like an FMLA versus transitioning over to [facility] for further care. 3. Hypokalemia, should improve with Aldactone. 4. Nausea, seems to be improved. He has had scheduled Zofran and p.r.n. Reglan. 5. Atrial fibrillation with a pacemaker. He is off Coumadin due to the hematoma given his severe heart failure on a palliative dobutamine infusion, we have decided not to restart it. This has been discussed with him, some of his family members as well as the [facility], who was in agreement. 6. Malnutrition. He is doing much better with diet than he had previous to this admission. He is eating 100% of meals. 7. Benign prostatic hyperplasia. There has been no voiding concerns. PLAN: At this point, the patient will continue swing bed cares. We will repeat lab work in 1 week. He will continue to work with therapies and I will contact the [facility] again regarding disconnecting the dobutamine to work with therapies. At home, he had it on more of a pump, but here now in the hospital he is requiring our IV pole and we can definitely work on a better plan for that to get that done before he goes home. Other consideration is to work with pharmacy to try and get our medication to run through his pump. KLEBER: 01/08/2019 06:15:42 MODL: 01/08/2019 07:13:09 /[id number] ROSIO
[2019-01-08] MEDS: Sodium Chloride 0.9% 10 ML Syringe FLUSH SCH ×2 (11:21→19:38)
[2019-01-08] MEDS: Metoclopramide 5 MG Tab PO PRN (11:54)
[2019-01-08] MEDS: SODIUM CHLORIDE 0.9% IV SCH (18:15)
[2019-01-08] MEDS: DOBUTAMINE IV SCH (18:15)
[2019-01-08] MEDS: Tamsulosin 0.4 MG Cap.ER PO SCH (19:35)
[2019-01-08] MEDS: Omeprazole 20 MG Cap.CR PO SCH (19:35)
[2019-01-09] MEDS: Spironolactone 25 MG Tab PO SCH (08:00)
[2019-01-09] MEDS: Finasteride 5 MG Tab PO SCH (08:00)
[2019-01-09] MEDS: Potassium Chloride 20 MEQ Packet PO SCH (08:00)
[2019-01-09] MEDS: Bumetanide 1 MG Tab PO SCH ×3 (08:01→17:08)
[2019-01-09] MEDS: Isosorbide Mononitrate 30 MG Tab.ER PO SCH (08:01)
[2019-01-09] MEDS: Magnesium Oxide 400 MG Tab PO SCH (08:01)
[2019-01-09] MEDS: Ondansetron 4 MG Tab.DIS PO SCH ×3 (08:02→17:08)
[2019-01-09] MEDS: CYCLOSPORINE EYE EYEBOTH SCH ×2 (08:04→19:25)
[2019-01-09] MEDS: Sodium Chloride 0.9% 10 ML Syringe FLUSH SCH ×2 (08:04→19:26)
[2019-01-09] MEDS: SODIUM CHLORIDE 0.9% IV SCH (18:14)
[2019-01-09] MEDS: DOBUTAMINE IV SCH (18:14)
[2019-01-09] MEDS: Omeprazole 20 MG Cap.CR PO SCH (19:25)
[2019-01-09] MEDS: Tamsulosin 0.4 MG Cap.ER PO SCH (19:25)
[2019-01-10] MEDS: Ondansetron 4 MG Tab.DIS PO SCH ×3 (07:40→17:46)
[2019-01-10] MEDS: Spironolactone 25 MG Tab PO SCH (07:40)
[2019-01-10] MEDS: Finasteride 5 MG Tab PO SCH (07:40)
[2019-01-10] MEDS: Potassium Chloride 20 MEQ Packet PO SCH (07:40)
[2019-01-10] MEDS: Bumetanide 1 MG Tab PO SCH ×3 (07:40→17:46)
[2019-01-10] MEDS: Isosorbide Mononitrate 30 MG Tab.ER PO SCH (07:40)
[2019-01-10] MEDS: Magnesium Oxide 400 MG Tab PO SCH (07:41)
[2019-01-10] MEDS: CYCLOSPORINE EYE EYEBOTH SCH ×2 (07:41→20:18)
[2019-01-10] MEDS: Sodium Chloride 0.9% 10 ML Syringe FLUSH SCH ×2 (07:43→20:32)
[2019-01-10] MEDS: Metoclopramide 5 MG Tab PO PRN (07:45)
[2019-01-10] MEDS: SODIUM CHLORIDE 0.9% IV SCH (17:47)
[2019-01-10] MEDS: DOBUTAMINE IV SCH (17:47)
[2019-01-10] MEDS: Omeprazole 20 MG Cap.CR PO SCH (20:18)
[2019-01-10] MEDS: Tamsulosin 0.4 MG Cap.ER PO SCH (20:19)
[2019-01-11] MEDS: Potassium Chloride 20 MEQ Packet PO SCH (08:01)
[2019-01-11] MEDS: Ondansetron 4 MG Tab.DIS PO SCH ×3 (08:01→17:31)
[2019-01-11] MEDS: Spironolactone 25 MG Tab PO SCH (08:02)
[2019-01-11] MEDS: Magnesium Oxide 400 MG Tab PO SCH (08:02)
[2019-01-11] MEDS: Isosorbide Mononitrate 30 MG Tab.ER PO SCH (08:02)
[2019-01-11] MEDS: Bumetanide 1 MG Tab PO SCH ×3 (08:02→17:31)
[2019-01-11] MEDS: Sodium Chloride 0.9% 10 ML Syringe FLUSH SCH ×2 (08:03→19:42)
[2019-01-11] MEDS: CYCLOSPORINE EYE EYEBOTH SCH ×2 (08:03→19:42)
[2019-01-11] MEDS: Finasteride 5 MG Tab PO SCH (08:03)
[2019-01-11] MEDS: SODIUM CHLORIDE 0.9% IV SCH (17:33)
[2019-01-11] MEDS: DOBUTAMINE IV SCH (17:33)
[2019-01-11] MEDS: Tamsulosin 0.4 MG Cap.ER PO SCH (19:41)
[2019-01-11] MEDS: Omeprazole 20 MG Cap.CR PO SCH (19:41)
[2019-01-12] MEDS: Ondansetron 4 MG Tab.DIS PO SCH ×3 (07:35→17:53)
[2019-01-12] MEDS: Isosorbide Mononitrate 30 MG Tab.ER PO SCH (07:36)
[2019-01-12] MEDS: Magnesium Oxide 400 MG Tab PO SCH (07:36)
[2019-01-12] MEDS: Potassium Chloride 20 MEQ Packet PO SCH (07:36)
[2019-01-12] MEDS: Spironolactone 25 MG Tab PO SCH (07:36)
[2019-01-12] MEDS: Bumetanide 1 MG Tab PO SCH ×3 (07:36→17:53)
[2019-01-12] MEDS: Finasteride 5 MG Tab PO SCH (07:36)
[2019-01-12] MEDS: Sodium Chloride 0.9% 10 ML Syringe FLUSH SCH ×2 (07:39→21:08)
[2019-01-12] MEDS: CYCLOSPORINE EYE EYEBOTH SCH ×2 (07:39→21:08)
[2019-01-12] MEDS ORDERED: Lactated Ringers 1,000 ML IV SCH (12:00)
[2019-01-12] MEDS: Metoclopramide 5 MG Tab PO PRN (13:44)
[2019-01-12] MEDS: SODIUM CHLORIDE 0.9% IV SCH (18:14)
[2019-01-12] MEDS: DOBUTAMINE IV SCH (18:14)
[2019-01-12] MEDS: Tamsulosin 0.4 MG Cap.ER PO SCH (21:07)
[2019-01-12] MEDS: Omeprazole 20 MG Cap.CR PO SCH (21:07)
[2019-01-13 07:27] LABS: ANION GAP 8.3 mmol/L (10-20)
[2019-01-13] MEDS: Ondansetron 4 MG Tab.DIS PO SCH ×3 (07:36→17:02)
[2019-01-13] MEDS: Finasteride 5 MG Tab PO SCH (08:18)
[2019-01-13] MEDS: Spironolactone 25 MG Tab PO SCH (08:18)
[2019-01-13] MEDS: Bumetanide 1 MG Tab PO SCH ×3 (08:18→17:02)
[2019-01-13] MEDS: Potassium Chloride 20 MEQ Packet PO SCH (08:18)
[2019-01-13] MEDS: Magnesium Oxide 400 MG Tab PO SCH ×2 (08:18→20:09)
[2019-01-13] MEDS: Isosorbide Mononitrate 30 MG Tab.ER PO SCH (08:18)
[2019-01-13] MEDS: CYCLOSPORINE EYE EYEBOTH SCH ×2 (08:19→20:11)
[2019-01-13] MEDS: Sodium Chloride 0.9% 10 ML Syringe FLUSH SCH ×2 (08:22→20:14)
[2019-01-13] MEDS: Metoclopramide 5 MG Tab PO PRN (08:24)
[2019-01-13] MEDS: Potassium Chloride 10 MEQ Tab.ER PO SCH (11:40)
[2019-01-13] MEDS: DOBUTAMINE IV SCH (18:23)
[2019-01-13] MEDS: SODIUM CHLORIDE 0.9% IV SCH (18:23)
[2019-01-13] MEDS: Tamsulosin 0.4 MG Cap.ER PO SCH (20:10)
[2019-01-13] MEDS: Omeprazole 20 MG Cap.CR PO SCH (20:11)
[2019-01-14] MEDS: Potassium Chloride 20 MEQ Packet PO SCH (07:25)
[2019-01-14] MEDS: Finasteride 5 MG Tab PO SCH (07:26)
[2019-01-14] MEDS: Spironolactone 25 MG Tab PO SCH (07:26)
[2019-01-14] MEDS: Bumetanide 1 MG Tab PO SCH ×3 (07:26→17:39)
[2019-01-14] MEDS: Sodium Chloride 0.9% 10 ML Syringe FLUSH SCH ×2 (07:27→20:34)
[2019-01-14] MEDS: Magnesium Oxide 400 MG Tab PO SCH ×2 (07:27→20:34)
[2019-01-14] MEDS: Isosorbide Mononitrate 30 MG Tab.ER PO SCH (07:27)
[2019-01-14] MEDS: Ondansetron 4 MG Tab.DIS PO SCH ×3 (07:27→17:39)
[2019-01-14] MEDS: CYCLOSPORINE EYE EYEBOTH SCH ×2 (07:28→21:00)
[2019-01-14] MEDS: Metoclopramide 5 MG Tab PO PRN (10:57)
[2019-01-14] MEDS: Potassium Chloride 10 MEQ Tab.ER PO SCH (11:12)
[2019-01-14] MEDS: DOBUTAMINE IV SCH (17:39)
[2019-01-14] MEDS: SODIUM CHLORIDE 0.9% IV SCH (17:39)
--- NOTE | 2019-01-14 18:18 | PN ---
Progress Note for TEE MELVIN Date: 01/14/2019 Room #: VM.214 SUBJECTIVE: This is an 83-year-old on swing bed after a left thigh hematoma, continues to have some weakness in that left leg, is not able to pull the knee up into flexion or bring the foot off the bed with hip flexion. He has had some frequency of urination, but UA was normal. He has known BPH. His residual was around 200. He also has felt nauseated today. It is happening about 3 times a week. He is already getting Zofran scheduled. He gets Reglan every 8 hours, but it does not always help. He gets it every 8 hours p.r.n. Otherwise, his breathing has been good. We switched his Lasix over to Bumex and he is getting that 3 times a day. He is tolerating it. He has also been restarted on Aldactone. He is tolerating it, but still his potassium levels are low. He is now on 30 mEq daily. Overall, he has reached end of physical therapy, but is working with OT again and working on a transition over to [facility]. Nursing is working with pharmacy and his pump for dobutamine because right now he is using our pump. OBJECTIVE: Vital Signs: His weight is 60.3 kg. His temperature is 98, blood pressure 100/67, respiratory rate 18, and O2 of 98% on 2 L. General: He is in no acute distress. Heart: Irregularly irregular with murmur. He does appear overall cachectic. Lungs: Sounds are clear to auscultation bilaterally without crackles or wheezes. Abdomen: Soft, nondistended, nontender. Extremities: Warm and dry. He has just 1+ edema. This is an improvement from previous exams. LABORATORY DATA: Lab work was done yesterday, did show his potassium again low at 3.3, sodium 136, chloride 96, bicarb 35, BUN 18, creatinine 1.2, magnesium 1.6. White count 5, hemoglobin 9.2, platelets 163. He is having bowel movements today. He is eating at least 50% to 100% of meals now. ASSESSMENT: 1. Chronic systolic heart failure, on dobutamine infusions. 2. Left thigh hematoma with impaired mobility, although that is improving. He is walking quite well. Physical therapy still anticipates or suspects he may have some weakness in his thigh muscles; however, even if he had an injury there, he would not be a surgical candidate. 3. Hypokalemia and hypomagnesemia, being replaced orally. 4. Impaired mobility and assistance needed with ADLs. [facility] will [facility]. 5. Nausea, intermittent. We discussed trying a scopolamine patch. Increased Reglan to every 6 hours. 6. Atrial fibrillation with pacemaker. He has been off Coumadin. He has not had any problems. 7. Malnutrition. He is eating better. 8. Benign prostatic hyperplasia with increased frequency. Blood pressure is too low to allow for an increase in Flomax, but we will continue to monitor this closely. We will do bladder scans if needed. PLAN: The patient will continue swing bed cares. He is working with OT now and Speech. Transition over to the correction for further therapies likely later this week. We will repeat lab work before he goes. MKA: 01/14/2019 17:14:21 MODL: 01/14/2019 18:07:27 /[id number]
[2019-01-14] MEDS: Scopolamine 1.5 MG Transdermal Patch TRDERM SCH (18:36)
[2019-01-14] MEDS: Tamsulosin 0.4 MG Cap.ER PO SCH (20:34)
[2019-01-14] MEDS: Omeprazole 20 MG Cap.CR PO SCH (20:34)
[2019-01-15] MEDS: Isosorbide Mononitrate 30 MG Tab.ER PO SCH (07:19)
[2019-01-15] MEDS: Potassium Chloride 20 MEQ Packet PO SCH (07:19)
[2019-01-15] MEDS: Spironolactone 25 MG Tab PO SCH (07:19)
[2019-01-15] MEDS: Ondansetron 4 MG Tab.DIS PO SCH ×3 (07:19→17:34)
[2019-01-15] MEDS: Finasteride 5 MG Tab PO SCH (07:19)
[2019-01-15] MEDS: Bumetanide 1 MG Tab PO SCH ×3 (07:19→17:35)
[2019-01-15] MEDS: Magnesium Oxide 400 MG Tab PO SCH ×2 (07:20→19:39)
[2019-01-15] MEDS: Sodium Chloride 0.9% 10 ML Syringe FLUSH SCH ×2 (07:20→20:47)
[2019-01-15] MEDS: CYCLOSPORINE EYE EYEBOTH SCH ×2 (07:21→19:39)
[2019-01-15] MEDS: Potassium Chloride 10 MEQ Tab.ER PO SCH (11:22)
[2019-01-15] MEDS: DOBUTAMINE IV SCH (17:34)
[2019-01-15] MEDS: SODIUM CHLORIDE 0.9% IV SCH (17:34)
[2019-01-15] MEDS: Omeprazole 20 MG Cap.CR PO SCH (19:39)
[2019-01-15] MEDS: Tamsulosin 0.4 MG Cap.ER PO SCH (19:39)
[2019-01-16] MEDS: Ondansetron 4 MG Tab.DIS PO SCH ×3 (07:46→17:40)
[2019-01-16] MEDS: Bumetanide 1 MG Tab PO SCH ×3 (07:47→17:07)
[2019-01-16] MEDS: Finasteride 5 MG Tab PO SCH (07:47)
[2019-01-16] MEDS: Isosorbide Mononitrate 30 MG Tab.ER PO SCH (07:47)
[2019-01-16] MEDS: Magnesium Oxide 400 MG Tab PO SCH ×2 (07:47→20:45)
[2019-01-16] MEDS: Potassium Chloride 20 MEQ Packet PO SCH (07:47)
[2019-01-16] MEDS: Spironolactone 25 MG Tab PO SCH (07:49)
[2019-01-16] MEDS: CYCLOSPORINE EYE EYEBOTH SCH ×2 (07:52→20:45)
[2019-01-16] MEDS: Sodium Chloride 0.9% 10 ML Syringe FLUSH SCH ×2 (07:53→20:45)
[2019-01-16] MEDS: Potassium Chloride 10 MEQ Tab.ER PO SCH (11:45)
--- NOTE | 2019-01-16 17:34 | PN ---
Progress Note for TEE MELVIN Date: 01/16/2019 Room #: VM.214 SUBJECTIVE: This is an 83-year-old with chronic systolic heart failure on swing bed for impaired mobility due to a left thigh hematoma. The patient has actually reached a point where he had been done working with PT and now even OT. However, PT had still noted some weakness in that left thigh muscle. He has also done working with Speech. He had increasing nausea, so we started him on a scopolamine patch, and he actually thinks it is helping. We had restarted Aldactone to help with potassium and heart failure, and his leg swelling is much improved. He is being monitored with his vitals due to the dobutamine infusion. Otherwise, the patient has not been able to get the dobutamine for his home pump to allow for us to provide teaching to him to restart that. We are also monitoring his potassium closely given his systolic heart failure and we have had to make adjustments and do routine lab monitoring. He otherwise has had multiple medication adjustments due to nausea. He is now eating 100%. His malnutrition is improving. He denies any pain to me today. OBJECTIVE: Vital Signs: His weight is 60.7 kg. His blood pressure is 115/67, pulse 72, respiratory rate 16, and O2 of 97% on 1 L. General: He is in no acute distress. Heart: Regularly irregular. Lungs: Sounds are clear to auscultation bilaterally with no crackles appreciated. He did have some slight rhonchi in the right lower base. Abdomen: Nondistended, nontender. Extremities: Warm and dry. Just trace edema at the ankles. Mental Status: He is alert. He is orientated x3. He is answering questions appropriately. ASSESSMENT AND PLAN: 1. Chronic systolic heart failure, on a palliative dobutamine infusion. We will continue with the same rates. We will continue with ongoing monitoring vital signs at least q.8 hours. We will do some teaching for him to resume his home pump prior to transfer over to assisted living or long-term care. 2. Left thigh hematoma. His mobility has improved, but he still has some left thigh weakness. I will re-consult Physical Therapy for further evaluation of that. 3. Hypokalemia and hypomagnesemia, on replacements. We will repeat lab work tomorrow. We will adjust his Aldactone if indicated. 4. Nausea, improved on the scopolamine patch. We will continue other medications as well. 5. Atrial fibrillation. Pacemaker in place. He is off Coumadin. 6. Malnutrition. Continue to encourage diet. 7. Benign prostatic hyperplasia with increased frequency. We will continue with bladder scanning and increase his Flomax if needed. PLAN: At this point, the patient is to continue skilled cares for ongoing management of his dobutamine infusion to ensure safety with medications and modify doses and adjustments if needed based on his heart failure and lab work as well as vital signs. MKA: 01/16/2019 17:13:35 MODL: 01/16/2019 17:30:16 /[id number] ROSIO
[2019-01-16] MEDS: DOBUTAMINE IV SCH (18:04)
[2019-01-16] MEDS: SODIUM CHLORIDE 0.9% IV SCH (18:04)
[2019-01-16] MEDS: Tamsulosin 0.4 MG Cap.ER PO SCH (20:45)
[2019-01-16] MEDS: Omeprazole 20 MG Cap.CR PO SCH (20:45)
[2019-01-17 07:04] LABS: ANION GAP 7.8 mmol/L (10-20)
[2019-01-17] MEDS: Bumetanide 1 MG Tab PO SCH ×3 (07:48→17:42)
[2019-01-17] MEDS: Ondansetron 4 MG Tab.DIS PO SCH ×3 (07:48→17:42)
[2019-01-17] MEDS: Potassium Chloride 20 MEQ Packet PO SCH (07:48)
[2019-01-17] MEDS: Magnesium Oxide 400 MG Tab PO SCH ×2 (07:49→21:01)
[2019-01-17] MEDS: Spironolactone 25 MG Tab PO SCH (07:49)
[2019-01-17] MEDS: Isosorbide Mononitrate 30 MG Tab.ER PO SCH (07:49)
[2019-01-17] MEDS: Finasteride 5 MG Tab PO SCH (07:49)
[2019-01-17] MEDS: Sodium Chloride 0.9% 10 ML Syringe FLUSH SCH (07:53)
[2019-01-17] MEDS: CYCLOSPORINE EYE EYEBOTH SCH ×2 (07:54→21:01)
[2019-01-17] MEDS: Metoclopramide 5 MG Tab PO PRN ×2 (11:56→17:43)
[2019-01-17] MEDS: DOBUTAMINE IV SCH (17:42)
[2019-01-17] MEDS: SODIUM CHLORIDE 0.9% IV SCH (17:42)
[2019-01-17] MEDS: Scopolamine 1.5 MG Transdermal Patch TRDERM SCH (18:42)
[2019-01-17] MEDS: Omeprazole 20 MG Cap.CR PO SCH (21:01)
[2019-01-17] MEDS: Tamsulosin 0.4 MG Cap.ER PO SCH (21:01)
[2019-01-18] MEDS: Ondansetron 4 MG Tab.DIS PO SCH ×3 (07:50→17:35)
[2019-01-18] MEDS: Spironolactone 25 MG Tab PO SCH (08:37)
[2019-01-18] MEDS: Bumetanide 1 MG Tab PO SCH ×3 (08:38→17:35)
[2019-01-18] MEDS: Magnesium Oxide 400 MG Tab PO SCH ×2 (08:39→20:23)
[2019-01-18] MEDS: Finasteride 5 MG Tab PO SCH (08:39)
[2019-01-18] MEDS: Isosorbide Mononitrate 30 MG Tab.ER PO SCH (08:39)
[2019-01-18] MEDS: CYCLOSPORINE EYE EYEBOTH SCH ×2 (08:40→20:23)
[2019-01-18] MEDS: SODIUM CHLORIDE 0.9% IV SCH (17:38)
[2019-01-18] MEDS: DOBUTAMINE IV SCH (17:38)
[2019-01-18] MEDS: Omeprazole 20 MG Cap.CR PO SCH (20:23)
[2019-01-18] MEDS: Tamsulosin 0.4 MG Cap.ER PO SCH (20:23)
[2019-01-19] MEDS: Magnesium Oxide 400 MG Tab PO SCH ×2 (07:35→20:37)
[2019-01-19] MEDS: Ondansetron 4 MG Tab.DIS PO SCH ×3 (07:35→17:32)
[2019-01-19] MEDS: Spironolactone 25 MG Tab PO SCH (07:35)
[2019-01-19] MEDS: Finasteride 5 MG Tab PO SCH (07:38)
[2019-01-19] MEDS: Bumetanide 1 MG Tab PO SCH ×3 (07:38→16:11)
[2019-01-19] MEDS: CYCLOSPORINE EYE EYEBOTH SCH ×2 (07:39→20:37)
[2019-01-19] MEDS: Isosorbide Mononitrate 30 MG Tab.ER PO SCH (07:45)
[2019-01-19] MEDS: DOBUTAMINE IV SCH (17:32)
[2019-01-19] MEDS: SODIUM CHLORIDE 0.9% IV SCH (17:32)
[2019-01-19] MEDS: Omeprazole 20 MG Cap.CR PO SCH (20:37)
[2019-01-19] MEDS: Tamsulosin 0.4 MG Cap.ER PO SCH (20:37)
[2019-01-20 07:09] LABS: ANION GAP 9.8 mmol/L (10-20)
[2019-01-20] MEDS: Ondansetron 4 MG Tab.DIS PO SCH ×3 (08:01→17:11)
[2019-01-20] MEDS: Finasteride 5 MG Tab PO SCH (08:01)
[2019-01-20] MEDS: CYCLOSPORINE EYE EYEBOTH SCH ×2 (08:01→21:56)
[2019-01-20] MEDS: Spironolactone 25 MG Tab PO SCH (08:01)
[2019-01-20] MEDS: Isosorbide Mononitrate 30 MG Tab.ER PO SCH (08:01)
[2019-01-20] MEDS: Bumetanide 1 MG Tab PO SCH ×3 (08:01→17:11)
[2019-01-20] MEDS: Magnesium Oxide 400 MG Tab PO SCH ×2 (08:01→21:53)
[2019-01-20] MEDS ORDERED: Bisacodyl 10 MG Supp RECTAL ONE (16:39)
--- NOTE | 2019-01-20 17:07 | PN ---
Progress Note for TEE MELVIN Date: 01/20/2019 Room #: VM.214 HISTORY OF PRESENT ILLNESS: This is an 83-year-old with systolic heart failure and a pelvic hematoma on swing bed for further cares. He has not been having the nausea, but he has not had a bowel movement in 2 days either. He is now on the scopolamine patch. He did start working with PT again last week due to some thigh weakness. Otherwise, he feels his breathing is good. He seems sort of down today. He asked me why he is losing weight. Overall, he is still eating 100% of his meals. His swelling is the least I have seen it. His weight on admission was 64 kg, another recheck was 67, now he is down to 51.2 kg. OBJECTIVE: Vital Signs: Otherwise, his weight is 51.25 kg, blood pressure 110/67, respiratory rate 16, pulse 68, O2 of 97% on 1 L. General: He is in no acute distress. Heart: Irregularly irregular with murmur with both systolic and diastolic components. Lungs: Lung sounds are clear to auscultation bilaterally without crackles or wheezes. Extremities: Warm and dry. He has no edema. Mental Status: He is alert. He is orientated x3, but he seems a little down, a little bit more depressed. PHQ 4 LABORATORY DATA: Lab work reviewed showed sodium 137, potassium 4.8, chloride 96, bicarb 35, BUN 25, creatinine 1.4, magnesium level 2. ASSESSMENT: 1. Chronic systolic heart failure, on dobutamine infusions. This is sort of causing some barriers to his discharge to long-term care. We are looking at other options, potentially even transitional care unit at the assisted living. For now, he meets criteria to continue swing bed cares due to ongoing ionotropic infusions, nurse monitoring, med changes. By the way, his potassium was stopped last Sunday and he has maintained his levels on Aldactone with good kidney function, so we will continue with the same. 2. Constipation. We will start him on some senna S and suppository available if needed and I am going to stop the scopolamine patch, it could be causing some side effects. 3. Atrial fibrillation. He is off anticoagulation. 4. Benign prostatic hyperplasia. He is on Flomax. 5. Coronary artery disease. He has not been reporting any chest pain. 6. Left pelvic hematoma. His hemoglobins have been stable. He has some anemia related to that. He will continue working with therapies. PLAN: At this point, the patient will continue on swing bed cares. His Bumex is currently dosed at 3 times a day which he is tolerating for his blood pressure. We will repeat lab work later in the week. We will continue to encourage a diet. MKA: 01/20/2019 16:44:50 MODL: 01/20/2019 17:01:10 /[id number] MTDD
[2019-01-20] MEDS: DOBUTAMINE IV SCH (18:29)
[2019-01-20] MEDS: SODIUM CHLORIDE 0.9% IV SCH (18:29)
[2019-01-20] MEDS: Tamsulosin 0.4 MG Cap.ER PO SCH (21:52)
[2019-01-20] MEDS: Omeprazole 20 MG Cap.CR PO SCH (21:52)
[2019-01-21] MEDS: Ondansetron 4 MG Tab.DIS PO SCH ×3 (07:08→17:26)
[2019-01-21] MEDS: Bumetanide 1 MG Tab PO SCH ×3 (08:11→17:25)
[2019-01-21] MEDS: Finasteride 5 MG Tab PO SCH (08:11)
[2019-01-21] MEDS: Magnesium Oxide 400 MG Tab PO SCH ×2 (08:11→20:22)
[2019-01-21] MEDS: Spironolactone 25 MG Tab PO SCH (08:12)
[2019-01-21] MEDS: Isosorbide Mononitrate 30 MG Tab.ER PO SCH (08:12)
[2019-01-21] MEDS: CYCLOSPORINE EYE EYEBOTH SCH ×2 (08:13→20:26)
[2019-01-21] MEDS: DOBUTAMINE IV SCH (17:28)
[2019-01-21] MEDS: SODIUM CHLORIDE 0.9% IV SCH (17:28)
[2019-01-21] MEDS: Tamsulosin 0.4 MG Cap.ER PO SCH (20:22)
[2019-01-21] MEDS: Omeprazole 20 MG Cap.CR PO SCH (20:22)
[2019-01-22] MEDS: Ondansetron 4 MG Tab.DIS PO SCH ×3 (07:08→17:18)
[2019-01-22] MEDS: CYCLOSPORINE EYE EYEBOTH SCH ×2 (08:07→20:11)
[2019-01-22] MEDS: Finasteride 5 MG Tab PO SCH (08:07)
[2019-01-22] MEDS: Magnesium Oxide 400 MG Tab PO SCH ×2 (08:07→20:17)
[2019-01-22] MEDS: Bumetanide 1 MG Tab PO SCH ×3 (08:07→17:18)
[2019-01-22] MEDS: Spironolactone 25 MG Tab PO SCH (08:07)
[2019-01-22] MEDS: Isosorbide Mononitrate 30 MG Tab.ER PO SCH (08:07)
[2019-01-22] MEDS: Metoclopramide 5 MG Tab PO PRN (13:54)
[2019-01-22] MEDS: DOBUTAMINE IV SCH (17:52)
[2019-01-22] MEDS: SODIUM CHLORIDE 0.9% IV SCH (17:52)
[2019-01-22] MEDS: Omeprazole 20 MG Cap.CR PO SCH (20:17)
[2019-01-22] MEDS: Tamsulosin 0.4 MG Cap.ER PO SCH (20:17)
[2019-01-23] MEDS: Ondansetron 4 MG Tab.DIS PO SCH ×3 (06:34→17:02)
[2019-01-23 06:57] LABS: ANION GAP 10.7 mmol/L (10-20)
[2019-01-23] MEDS: Bumetanide 1 MG Tab PO SCH ×3 (07:53→16:00)
[2019-01-23] MEDS: Magnesium Oxide 400 MG Tab PO SCH ×2 (07:53→09:25)
[2019-01-23] MEDS: Spironolactone 25 MG Tab PO SCH (07:53)
[2019-01-23] MEDS: Finasteride 5 MG Tab PO SCH (07:53)
[2019-01-23] MEDS: Isosorbide Mononitrate 30 MG Tab.ER PO SCH (07:53)
[2019-01-23] MEDS: CYCLOSPORINE EYE EYEBOTH SCH ×2 (07:55→20:36)
[2019-01-23] MEDS ORDERED: Scopolamine 1.5 MG Transdermal Patch TRDERM SCH (08:00)
--- NOTE | 2019-01-23 12:35 | PCM.DCSUM1 ---
Discharge Summary - Hospital Course Free Text/Narrative:: Admit 12/25-01/24 Patient admitted to swing bed after an acute stay at [facility] for a pelvic hematoma that caused left hip pain and impaired mobility he had previously been admitted to [facility] for CHF and pneumonia earlier this summer then had persistent nausea and was transferred to [facility] for concern for cholecystitis however he did not have that and his nausea and appetite had improved. Unfortunately on discharge he had an injury to his leg and ended up with the hematoma so on 12/19-12/25 was readmitted. He is on a continuous dobutamine infusion. He is tolerating that. I adjusted his diuretics several times as he felt the lasix caused nausea and worked better through the IV. He lost a significant amount of weight during his stay (26 lbs) likely related to fluid loss with improved edema control for his CHF and also due to malnutrition due to his advanced heart failure. He was eating well here and tolerating a diet. He had trial so multiple nausea medications and some days were better than others. The Scopalamine patch did help but caused constipation however he prefers to restart that and take stool softenors and eat prunes. Potassium and magnesium were replaced and aldactone was restarted as he didn't tolerate previously due to hyperkalemia while on Lisinopril. He was able to get off potassium suplements and lab work reviewed on discharge did show stable renal function with a cr of 1.5. He continue on flomax and was emptying his bladder ok. Did have some frequency while he was here but UA did not show infection. His pain improved in the left hip but weakness continue and he had a loss of knee extension since this injury. He was discharged from PT but then they were reconsulted and they continue to work on leg strength. OT was also reconsulted to help with dressing given that we couldn't disconnect his infusion they had to tailor their treatments. Otherwise he was also seen by speech therapy and had a swallow eval on 01/06. He was tolerating a diet and was not coughing or choking on food. His oxygen saturations were ok but he did feel better with using oxygen. - Discharge Data Discharge Date: 01/24/19 Discharge Disposition: DC/Tfer to Longterm Care 63 Condition: Fair - Referral to Home Health Primary Care Physician: Ciera Quiroz, DO - Discharge Diagnosis/Problem(s) (1) HF (heart failure) SNOMED Code(s): 14602068 ICD Code: I50.9 - HEART FAILURE, UNSPECIFIED Status: Chronic Priority: Medium Current Visit: No Qualifiers: Heart failure type: combined systolic and diastolic Heart failure chronicity: chronic Qualified Code(s): I50.42 - Chronic combined systolic ( congestive) and diastolic (congestive) heart failure (2) Hip pain, left SNOMED Code(s): 27080187 ICD Code: M25.552 - PAIN IN LEFT HIP Status: Resolved Priority: High Current Visit: Yes Problem Details: due to pelvic hematoma (3) Malnutrition SNOMED Code(s): 00735034 ICD Code: E46 - UNSPECIFIED PROTEIN-CALORIE MALNUTRITION Status: Chronic Priority: High Current Visit: No Qualifiers: Malnutrition type: protein-calorie malnutrition Protein-calorie malnutrition severity: moderate Qualified Code(s): E44.0 - Moderate protein- calorie malnutrition (4) Pedal edema SNOMED Code(s): 730018139 ICD Code: R60.0 - LOCALIZED EDEMA Status: Resolved Priority: Medium Current Visit: Yes (5) Pelvic hematoma SNOMED Code(s): 023128484 ICD Code: [id number] - Status: Resolved Priority: High Current Visit: Yes (6) BPH (benign prostatic hyperplasia) SNOMED Code(s): 807531372 ICD Code: N40.0 - BENIGN PROSTATIC HYPERPLASIA WITHOUT LOWER URINRY TRACT SYMP Status: Chronic Priority: Medium Current Visit: No Qualifiers: Lower urinary tract symptom presence: symptoms absent Qualified Code(s): N40.0 - Benign prostatic hyperplasia without lower urinary tract symptoms (7) CAD (coronary artery disease) SNOMED Code(s): 57864001 ICD Code: I25.10 - ATHSCL HEART DISEASE OF [place] CORONARY ARTERY W/O ANG PCTRS Status: Chronic Priority: Medium Current Visit: Yes Qualifiers: Coronary Disease-Associated Artery/Lesion type: [place] artery [place] vs. transplanted heart: [place] heart Associated angina: without angina Qualified Code(s): I25.10 - Atherosclerotic heart disease of [place] coronary artery without angina pectoris (8) Chronic renal insufficiency SNOMED Code(s): 578826719 ICD Code: N18.9 - CHRONIC KIDNEY DISEASE, UNSPECIFIED Status: Chronic Priority: Medium Current Visit: No Qualifiers: Chronic kidney disease stage: stage 3 (moderate) Qualified Code(s): N18.3 - Chronic kidney disease, stage 3 (moderate) (9) Ischemic cardiomyopathy SNOMED Code(s): 236669646 ICD Code: I25.5 - ISCHEMIC CARDIOMYOPATHY Status: Chronic Priority: Medium Current Visit: Yes (10) Pacemaker SNOMED Code(s): 992792890 ICD Code: Z95.0 - PRESENCE OF CARDIAC PACEMAKER Status: Chronic Priority : High Current Visit: Yes (11) Paroxysmal atrial fibrillation SNOMED Code(s): 606768396 ICD Code: I48.0 - PAROXYSMAL ATRIAL FIBRILLATION Status: Chronic Current Visit: No - Patient Summary/Data Consults: Consultations 12/25/18 16:48 OT Evaluation and Treatment [CONS] Routine PT Evaluation and Treatment [CONS] Routine 12/25/18 16:49 NECK SKEWER Evaluation and Treatment [CONS] Routine 12/27/18 11:22 Consult to Assistant Curator [CONS] Routine 01/10/19 12:58 OT Evaluation and Treatment [CONS] Routine 01/16/19 14:46 PT Evaluation and Treatment [CONS] Routine - Patient Instructions Diet: Low Sodium Fluid Restriction: 2000 mL Activity: As Tolerated Driving: Do Not Drive Notify Provider of: Fever, Increased Pain, Nausea and/or Vomiting - Discharge Plan *PRESCRIPTION DRUG MONITORING PROGRAM REVIEWED*: Not Applicable *COPY OF PRESCRIPTION DRUG MONITORING REPORT IN PATIENT CHARLEY: Not Applicable Prescriptions/Med Rec: Bumetanide [Bumex] 2 mg PO TID@0800,1200,1600 #180 tablet Metoclopramide [Reglan] 5 mg PO Q6H PRN #30 tablet PRN Reason: Nausea Non-Formulary Medication [NF Drug] 1 each IV .CONTINUOUS #1000 ml Ondansetron [Zofran ODT] 4 mg PO 0700,1100,1700 #90 tab.dis Scopolamine [Transderm-Scop] 1.5 mg TRDERM Q72H #10 patch Sennosides/Docusate Sodium [Senna Plus 8.6-50 mg Tablet] 1 each PO DAILY #30 tablet Spironolactone [Aldactone] 12.5 mg PO DAILY #60 tablet Home Medications: Home Meds Nitroglycerin [Nitrolingual] 0.4 - 0.8 mg SL ASDIRECTED PRN 10/16/16 [History] cycloSPORINE [Restasis] 1 drop EYEBOTH BID 01/09/17 [History] Isosorbide Mononitrate [Imdur] 30 mg PO DAILY 09/04/18 [History] Finasteride 5 mg PO DAILY 10/08/18 [History] Tamsulosin [Flomax] 0.4 mg PO BEDTIME 10/08/18 [History] Carboxymethylcellulose Sodium [Refresh Celluvisc] 1 drop EYEBOTH QID PRN [History] Methyl Salicylate/Menthol [Arthritis Hot Pain Relief Crm] 1 applic TOP QID PRN 12/25/18 [History] Omeprazole 20 mg PO BEDTIME 12/25/18 [History] Acetaminophen [Tylenol Extra Strength] 500 mg PO QID PRN tablet 01/22/19 [Rx] Bumetanide [Bumex] 2 mg PO TID@0800,1200,1600 #180 tablet 01/22/19 [Rx] DOBUTamine 250 mg IV DAILY@1800 sdv 01/22/19 [Rx] Metoclopramide [Reglan] 5 mg PO Q6H PRN #30 tablet 01/22/19 [Rx] Non-Formulary Medication [NF Drug] 1 each IV .CONTINUOUS #1000 ml 01/22/19 [Rx] Ondansetron [Zofran ODT] 4 mg PO 0700,1100,1700 #90 tab.dis 01/22/19 [Rx] Spironolactone [Aldactone] 12.5 mg PO DAILY #60 tablet 01/22/19 [Rx] Magnesium Oxide 400 mg PO DAILY tablet 01/23/19 [Rx] Scopolamine [Transderm-Scop] 1.5 mg TRDERM Q72H #10 patch 01/23/19 [Rx] Sennosides/Docusate Sodium [Senna Plus 8.6-50 mg Tablet] 1 each PO DAILY #30 tablet 01/23/19 [Rx] Oxygen Therapy Mode: Nasal Cannula (2 L) - Discharge Summary/Plan Comment DC Time >30 min.: Yes Discharge Summary/Plan Comment: To [facility] to continue PT/OT/Speech He is getting dobutamine 2mg/ml, running @ 4.4ml/hr, so 8.8mg/hr. Based on his current weight, this is about 2.8-2.9 mcg/kg/min rather than 2.5 mcg/kg/min as ordered @ [facility]. Im not concerned about that if hes stable. CMP and CBC ordered in 2 weeks Recheck on 02/19 [facility] rounds - General Info Date of Service: 01/23/19 Functional Status: Reports: Pain Controlled, Tolerating Diet, Ambulating ( walking 2 labs in the hospital halls) - Review of Systems General: Reports: Fatigue Pulmonary: Reports: No Symptoms Cardiovascular: Reports: No Symptoms Gastrointestinal: Reports: Nausea. Denies: Abdominal Pain, Diarrhea, Difficulty Swallowing, Vomiting Musculoskeletal: Reports: Other (leg pain) Skin: Reports: No Symptoms Psychiatric: Reports: No Symptoms - Patient Data Vitals - Most Recent: Last Vital Signs Temp 97.8 F 01/23/19 05:57 Pulse 74 01/23/19 05:57 Resp 19 01/23/19 05:57 BP 126/60 01/23/19 07:53 Pulse Ox 96 01/23/19 08:00 Weight - Most Recent: 51.256 kg I&O - Last 24 hours: Intake & Output 01/22/19 01/23/19 01/23/19 22:59 06:59 14:59 Intake Total 293 510 Balance 293 510 Lab Results - Last 24 hrs: Laboratory Results - last 24 hr 01/23/19 Range/Units 06:24 Sodium 135 L (69-191) mmol/L Potassium 3.7 (1.5-9.9) mmol/L Chloride 93 L (54-184) mmol/L Carbon Dioxide 35 H (21-32) mmol/L Anion Gap 10.7 (10-20) mmol/L BUN 31 H (7-18) mg/dL Creatinine 1.5 H (0.70-1.30) mg/dL Est Cr Clr Drug Dosing 25.87 mL/min Estimated GFR (MDRD) 44 Glucose 97 (74-106) mg/dL Calcium 9.0 (8.5-10.1) mg/dL Med Orders - Current: Current Medications Acetaminophen (Tylenol Extra Strength) 500 mg PO QID PRN PRN Reason: Pain Last Admin: 12/26/18 20:52 Dose: 500 mg Alprazolam (Xanax) 0.25 mg PO Q4H PRN PRN Reason: Anxiety Last Admin: 12/26/18 20:50 Dose: 0.25 mg Artificial Tears (Nature's Tears Eye Drops) 1 ml EYEBOTH QID PRN PRN Reason: Dry Eyes Bumetanide (Bumex) 2 mg PO TID@0800,1200,1600 [facility] Last Admin: 01/23/19 11:43 Dose: 2 mg Diphenhydramine HCl (Benadryl) 25 mg PO QID PRN PRN Reason: Congestion Last Admin: 12/26/18 01:52 Dose: 25 mg Finasteride (Proscar) 5 mg PO DAILY [facility] Last Admin: 01/23/19 07:53 Dose: 5 mg Dobutamine HCl 250 mg/ Sodium (Chloride) 125 mls @ 4.4 mls/hr IV DAILY@1800 [facility] Last Admin: 01/22/19 17:52 Dose: 4.4 mls/hr Isosorbide Mononitrate (Imdur) 30 mg PO DAILY [facility] Last Admin: 01/23/19 07:53 Dose: 30 mg Magnesium Oxide (Magnesium Oxide) 400 mg PO DAILY [facility] Last Admin: 01/23/19 09:25 Dose: Not Given Methyl Salicylate (Icy Hot Cream) 0 gm TOP QID PRN PRN Reason: Cramping Metoclopramide HCl (Reglan) 5 mg PO Q6H PRN PRN Reason: Nausea Last Admin: 01/22/19 13:54 Dose: 5 mg Nitroglycerin (Nitrolingual) 0.04 gm TRLING ASDIRECTED PRN PRN Reason: Chest Pain Cyclosporine [ Restasis] Eye Drops (Own Supply) 1 drop EYEBOTH BID [facility] Last Admin: 01/23/19 07:55 Dose: 1 drop Omeprazole (Omeprazole) 20 mg PO BEDTIME [facility] Last Admin: 01/22/19 20:17 Dose: 20 mg Ondansetron HCl (Zofran Odt) 4 mg PO 0700,1100,1700 [facility] Last Admin: 01/23/19 11:43 Dose: 4 mg Scopolamine (Transderm-Scop) 1.5 mg TRDERM Q72H [facility] Last Admin: 01/23/19 09:28 Dose: 1.5 mg Senna/Docusate Sodium (Senna Plus) 1 tab PO BID PRN PRN Reason: Constipation Last Admin: 01/22/19 08:07 Dose: 1 tab Spironolactone (Aldactone) 12.5 mg PO DAILY [facility] Last Admin: 01/23/19 07:53 Dose: 12.5 mg Tamsulosin HCl (Flomax) 0.4 mg PO BEDTIME [facility] Last Admin: 01/22/19 20:17 Dose: 0.4 mg Discontinued Medications Acetaminophen (Tylenol Extra Strength) 500 mg PO ONETIME STA Stop: 12/26/18 01:19 Last Admin: 12/26/18 01:50 Dose: 500 mg Alprazolam (Xanax) 0.25 mg PO Q4H PRN PRN Reason: Anxiety Alprazolam (Xanax) 0.25 mg PO ONETIME ONE Stop: 12/26/18 01:23 Last Admin: 12/26/18 01:52 Dose: 0.25 mg Barium Sulfate (E-Z-Paste) 9.988 gm .ROUTE .STK-MED ONE Stop: 01/06/19 09:31 Barium Sulfate (E-Z-Hd) 43.384 gm .ROUTE .STK-MED ONE Stop: 01/06/19 09:31 Bisacodyl (Dulcolax) 10 mg RECTAL ONETIME ONE Stop: 01/20/19 16:40 Last Admin: 01/20/19 17:11 Dose: 10 mg Furosemide (Lasix) 80 mg PO BID [facility] Last Admin: 12/26/18 20:50 Dose: 80 mg Furosemide (Lasix) 80 mg PO BIDDIURETIC [facility] Last Admin: 01/02/19 16:27 Dose: Not Given Influenza Virus Vaccine (Fluzone High-Dose 2019-20 Syringe) 180 mcg IM .ONCE ONE Stop: 01/21/19 14:01 Last Admin: 01/21/19 14:14 Dose: 180 mcg Magnesium Oxide (Magnesium Oxide) 400 mg PO DAILY [facility] Last Admin: 01/13/19 08:18 Dose: 400 mg Magnesium Oxide (Magnesium Oxide) 400 mg PO BID [facility] Last Admin: 01/23/19 07:53 Dose: 400 mg Metoclopramide HCl (Reglan) 5 mg PO Q8H PRN PRN Reason: Nausea Last Admin: 01/14/19 10:57 Dose: 5 mg Non-Formulary Medication (Dobutamine 2mg/Ml) 1 each IV .CONTINUOUS [facility] Ondansetron HCl (Zofran Odt) 4 mg PO TIDMEALS PRN PRN Reason: Nausea Last Admin: 12/31/18 11:17 Dose: 4 mg Ondansetron HCl (Zofran Odt) 4 mg PO TIDMEALS [facility] Last Admin: 01/20/19 17:11 Dose: 4 mg Potassium Chloride (Klor-Con) 20 meq PO DAILY [facility] Last Admin: 01/17/19 07:48 Dose: 20 meq Potassium Chloride (Klor-Con 10) 10 meq PO DAILY@1200 [facility] Last Admin: 01/16/19 11:45 Dose: 10 meq Scopolamine (Transderm-Scop) 1.5 mg TRDERM Q72H [facility] Last Admin: 01/17/19 18:42 Dose: 1.5 mg Sodium Chloride (Saline Flush) 10 ml FLUSH BID [facility] Last Admin: 01/17/19 07:53 Dose: 10 ml - Exam Quality Assessment: Reports: Supplemental Oxygen General: Reports: Alert, Oriented Neck: Reports: Supple, Trachea Midline, JVD Lungs: Reports: Clear to Auscultation, Normal Respiratory Effort Cardiovascular: Reports: Irregular Rhythm GI/Abdominal Exam: Soft, Non-Tender Extremities: No Pedal Edema, Limited Range of Motion (he can not actively extend his left knee ) Skin: Reports: Warm, Dry, Intact Neurological: Reports: No New Focal Deficit
[2019-01-23] MEDS: SODIUM CHLORIDE 0.9% IV SCH (17:51)
[2019-01-23] MEDS: DOBUTAMINE IV SCH (17:51)
[2019-01-23] MEDS: Tamsulosin 0.4 MG Cap.ER PO SCH (20:33)
[2019-01-23] MEDS: Omeprazole 20 MG Cap.CR PO SCH (20:43)
[2019-01-24 05:21] VITALS: BP 130/66; PULSE 79
[2019-01-24] MEDS: Ondansetron 4 MG Tab.DIS PO SCH (06:35)
[2019-01-24] MEDS: Bumetanide 1 MG Tab PO SCH (08:12)
[2019-01-24] MEDS: Finasteride 5 MG Tab PO SCH (08:12)
[2019-01-24] MEDS: Spironolactone 25 MG Tab PO SCH (08:13)
[2019-01-24] MEDS: CYCLOSPORINE EYE EYEBOTH SCH (08:13)
[2019-01-24] MEDS: Isosorbide Mononitrate 30 MG Tab.ER PO SCH (08:13)
[2019-01-24] MEDS: Magnesium Oxide 400 MG Tab PO SCH (08:13)
== END 2019-01-24 09:30 | DRG 605 ==
LOC: VM.MS 15:00
PROVIDERS: ADMIT Internal Medicine; ATTEND Internal Medicine
DX: S70.12XA Contusion of left thigh, initial encounter (principal); I13.0 Hypertensive heart and chronic kidney disease with heart failure and stage 1 through stage 4 chronic kidney disease, or unspecified chronic kidney disease; E44.0 Moderate protein-calorie malnutrition; I50.42 Chronic combined systolic (congestive) and diastolic (congestive) heart failure; Z51.5 Encounter for palliative care; I25.10 Atherosclerotic heart disease of native coronary artery without angina pectoris; N18.3 Chronic kidney disease, stage 3 (moderate); I48.0 Paroxysmal atrial fibrillation; N40.1 Benign prostatic hyperplasia with lower urinary tract symptoms; R35.0 Frequency of micturition; E78.00 Pure hypercholesterolemia, unspecified; I34.0 Nonrheumatic mitral (valve) insufficiency; I35.0 Nonrheumatic aortic (valve) stenosis; M10.9 Gout, unspecified; R73.03 Prediabetes; I25.5 Ischemic cardiomyopathy; R11.0 Nausea; K59.00 Constipation, unspecified; E87.6 Hypokalemia; E83.42 Hypomagnesemia; Z74.09 Other reduced mobility; Z95.0 Presence of cardiac pacemaker; Z79.899 Other long term (current) drug therapy; X50.1XXA Overexertion from prolonged static or awkward postures, initial encounter; I25.2 Old myocardial infarction; Z95.1 Presence of aortocoronary bypass graft; Z95.2 Presence of prosthetic heart valve; Z87.891 Personal history of nicotine dependence
CPT/HCPCS: 36415; 51798; 71046; 74230; 80048; 80053; 81003; 83735; 85025; 90662; 92526-GN; 92610-GN; 92611-GN; 94760; 97110-GP; 97116-GP; 97161-GP; 97164-GP; 97165-GO; 97168-GO; 97530-GP; 97535-GO; A9270-GY; G0008; J1250; J7050

== ENCOUNTER 2019-01-27 19:10 | Emergency (ER) | payer MEDICARE, BC ==
[2019-01-27] MEDS ORDERED: Ondansetron 4 MG/2 ML SDV IVPUSH ONE (19:30)
--- NOTE | 2019-01-27 19:38 | EDM.PDOC ---
ED HPI GENERAL MEDICAL PROBLEM - General Chief Complaint: Gastrointestinal Problem Stated Complaint: Nausea and weakness just does not feel like eating Time Seen by Provider: 01/27/19 19:25 Source of Information: Reports: Patient, EMS, Family History Limitations: Reports: No Limitations - History of Present Illness INITIAL COMMENTS - FREE TEXT/NARRATIVE: Patient since the ER from home by EMS after not eating for 3 days and states he has been drinking but not eating he just does not want to eat he also has chronic nausea. He has been seen for this before multiple times he was just discharged from the hospital last Sunday secondary to weakness and was transferred to a long-term care facility and since then there he seems to have declined strength and eating. Patient is currently on dobutamine IV secondary to chronic CHF He has no other complaints at this time Duration: Day(s): Improves with: Reports: None Worsens with: Reports: None Associated Symptoms: Reports: Other (Nausea only no vomiting no diarrhea no bloody bowel movements no abdominal pain no pain anywhere) - Related Data Allergies Allergy/AdvReac Type Severity Reaction Status Date / Time No Known Allergies Allergy Verified 12/25/18 14:41 Home Meds: Home Meds Nitroglycerin [Nitrolingual] 0.4 - 0.8 mg SL ASDIRECTED PRN 10/16/16 [History] cycloSPORINE [Restasis] 1 drop EYEBOTH BID 01/09/17 [History] Isosorbide Mononitrate [Imdur] 30 mg PO DAILY 09/04/18 [History] Finasteride 5 mg PO DAILY 10/08/18 [History] Tamsulosin [Flomax] 0.4 mg PO BEDTIME 10/08/18 [History] Carboxymethylcellulose Sodium [Refresh Celluvisc] 1 drop EYEBOTH QID PRN [History] Methyl Salicylate/Menthol [Arthritis Hot Pain Relief Crm] 1 applic TOP QID PRN 12/25/18 [History] Omeprazole 20 mg PO BEDTIME 12/25/18 [History] Acetaminophen [Tylenol Extra Strength] 500 mg PO QID PRN tablet 01/22/19 [Rx] Bumetanide [Bumex] 2 mg PO TID@0800,1200,1600 #180 tablet 01/22/19 [Rx] DOBUTamine 250 mg IV DAILY@1800 sdv 01/22/19 [Rx] Metoclopramide [Reglan] 5 mg PO Q6H PRN #30 tablet 01/22/19 [Rx] Non-Formulary Medication [NF Drug] 1 each IV .CONTINUOUS #1000 ml 01/22/19 [Rx] Ondansetron [Zofran ODT] 4 mg PO 0700,1100,1700 #90 tab.dis 01/22/19 [Rx] Spironolactone [Aldactone] 12.5 mg PO DAILY #60 tablet 01/22/19 [Rx] Magnesium Oxide 400 mg PO DAILY tablet 01/23/19 [Rx] Scopolamine [Transderm-Scop] 1.5 mg TRDERM Q72H #10 patch 01/23/19 [Rx] Sennosides/Docusate Sodium [Senna Plus 8.6-50 mg Tablet] 1 each PO DAILY #30 tablet 01/23/19 [Rx] Past Medical History Cardiovascular History: Reports: Afib, Bypass, CAD, Cardiomyopathy, Heart Failure, High Cholesterol, Hypertension, [place], Pacemaker, SOB on Exertion Other Cardiovascular History: arthrosclerosis. mitral regurgitation. cardiomyopathy. aortic stenosis Respiratory History: Reports: Other (See Below) Other Respiratory History: Pneumonia Gastrointestinal History: Reports: None Genitourinary History: Reports: Prostate Disorder Other Genitourinary History: hematuria Musculoskeletal History: Reports: Gout Psychiatric History: Reports: None Endocrine/Metabolic History: Reports: None Other Endocrine/Metabolic History: prediabetes Hematologic History: Reports: Anticoagulation Therapy Immunologic History: Reports: None Oncologic (Cancer) History: Reports: None - Infectious Disease History Infectious Disease History: Reports: None - Past Surgical History Cardiovascular Surgical History: Reports: Coronary Artery Bypass, Pacer, Valve Replacement Other Cardiovascular Surgeries/Procedures: CABG x4 GI Surgical History: Reports: None Oncologic Surgical History: Reports: None Dermatological Surgical History: Reports: None Social & Family History - Family History Neurological: Reports: Dementia - Caffeine Use Caffeine Use: Reports: Coffee ED ROS GENERAL - Review of Systems Review Of Systems: See Below Constitutional: Reports: No Symptoms, Weakness. Denies: Fever, Chills, Malaise , Fatigue HEENT: Reports: No Symptoms Respiratory: Reports: No Symptoms. Denies: Shortness of Breath, Cough Cardiovascular: Denies: Chest Pain, Blood Pressure Problem, Dyspnea on Exertion , Edema, Lightheadedness, Syncope Endocrine: Denies: Fatigue GI/Abdominal: Reports: Decreased Appetite, Nausea. Denies: Abdominal Pain, Anorexia, Black Stool, Bloody Stool, Constipation, Diarrhea, Difficulty Swallowing, Hematemesis, Hematochezia, Melena, Vomiting : Reports: No Symptoms Musculoskeletal: Reports: No Symptoms Skin: Reports: No Symptoms Neurological: Reports: No Symptoms Psychiatric: Reports: No Symptoms Hematologic/Lymphatic: Reports: No Symptoms Immunologic: Reports: No Symptoms ED EXAM, GENERAL - Physical Exam Exam: See Below Exam Limited By: No Limitations General Appearance: Alert, WD/WN, No Apparent Distress, Other (Patient is very friendly in no acute distress follows all commands normal conversation) Eye Exam: Bilateral Eye: EOMI, PERRL Nose: Normal Inspection, Normal Mucosa, No Blood Throat/Mouth: Normal Inspection, Normal Lips, Normal Teeth, Normal Gums, Normal Oropharynx, Normal Voice, No Airway Compromise, Other (Mild dry mucous membranes ) Head: Atraumatic, Normocephalic Neck: Normal Inspection, Supple, Non-Tender, Full Range of Motion Respiratory/Chest: No Respiratory Distress, Lungs Clear, Normal Breath Sounds, No Accessory Muscle Use, Chest Non-Tender Cardiovascular: Normal Peripheral Pulses, Regular Rate, Rhythm, No Edema, No Gallop, Other (Systolic murmur noted graded approximately 3 out of 6). No: No Murmur GI/Abdominal: Normal Bowel Sounds, Soft, Non-Tender, No Organomegaly, No Distention, No Abnormal Bruit, No Mass. No: Distended, Guarding, Rigid, Rebound , Tender, Abnormal Bowel Sounds Back Exam: Normal Inspection, Full Range of Motion Extremities: Normal Inspection, Normal Range of Motion, Non-Tender, No Pedal Edema, Normal Capillary Refill, Other (5/5 blat ue le =locks inspector blat FROM ) Neurological: Alert, Oriented, CN II-XII Intact, Normal Cognition, Normal Gait, Normal Reflexes, No Motor/Sensory Deficits Psychiatric: Normal Affect, Normal Mood Skin Exam: Warm, Dry, Intact, Normal Color, No Rash Lymphatic: No Adenopathy Course - Vital Signs Text/Narrative:: CBC BMP 250 normal saline bolus Patient has had a steady increase in his BUN/creatinine [address] Stover try trial oral rehydration at the senior care and they will see him Sunday or have ac to see him Sunday Discussed options of Megace and Marinol with family to discuss with primary care provider Patient was given 500 mL of normal saline today level is rechecked the [facility] Sunday Rechecked patient states he feels some better but nausea will give Reglan 5 mg IV - Orders/Labs/Meds Orders: Active Orders 24 hr Category Date Time Status Sodium Chloride 0.9% [Normal Saline] 500 ml Med 01/27/19 19:45 Active IV ASDIRECTED Medication Orders Sodium Chloride (Normal Saline) 500 mls @ 100 mls/hr IV ASDIRECTED BOAZ Last Admin: 01/27/19 20:02 Dose: 100 mls/hr Labs: Laboratory Tests 01/27/19 01/27/19 Range/Units 19:56 19:56 WBC 11.7 H (4.0-10.0) x10^3/uL RBC 3.25 L (4.5-6.0) x10^6/uL Hgb 10.5 L (14.0-18.0) g/dL Hct 30.9 L (40.0-52.0) % MCV 95.1 H D (78.0-93.0) fL MCH 32.3 H (26.0-32.0) pg MCHC 34.0 (32.0-36.0) g/dL RDW Coeff of Dayna 17.2 H (10.0-15.0) % Plt Count 157 (130-400) x10^3/uL Neut % (Auto) 88.3 H (50.0-80.0) % Lymph % (Auto) 4.2 L (25.0-50.0) % [place] % (Auto) 7.4 (2.0-11.0) % Eos % (Auto) 0.1 (0.0-4.0) % Baso % (Auto) 0.0 L (0.2-1.2) % Sodium 133 L (69-191) mmol/L Potassium 3.9 (1.5-9.9) mmol/L Chloride 90 L (54-184) mmol/L Carbon Dioxide 34 H (21-32) mmol/L Anion Gap 12.9 (10-20) mmol/L BUN 45 H (7-18) mg/dL Creatinine 1.8 H (0.70-1.30) mg/dL Est Cr Clr Drug Dosing TNP Estimated GFR (MDRD) 36 Glucose 138 H (74-106) mg/dL Calcium 9.2 (8.5-10.1) mg/dL Meds: Medications Generic Name Dose Route Start Last Admin Trade Name Elvira PRN Reason Stop Dose Admin Sodium Chloride 500 mls @ 100 mls/hr 01/27/19 19:45 01/27/19 20:02 Normal Saline IV 100 mls/hr ASDIRECTED BOAZ Administration Discontinued Medications Generic Name Dose Route Start Last Admin Trade Name Elvira PRN Reason Stop Dose Admin Metoclopramide HCl 5 mg 01/27/19 20:47 Reglan IVPUSH 01/27/19 20:48 ONETIME ONE Ondansetron HCl 8 mg 01/27/19 19:30 01/27/19 19:55 Zofran IVPUSH 01/27/19 19:31 8 mg ONETIME ONE Administration Departure - Departure Time of Disposition: 20:45 Disposition: [facility] to [facility] Condition: Fair Clinical Impression: Dehydration, Elevated BUN, Nausea - Discharge Information *PRESCRIPTION DRUG MONITORING PROGRAM REVIEWED*: No *COPY OF PRESCRIPTION DRUG MONITORING REPORT IN PATIENT CHARLEY: No Referrals: Ac Quiroz, [Primary Care Provider] - Forms: ED Department Discharge Additional Instructions: Follow-up with her primary care doctor in the next 24-48 hours Drink approximately 4-5 glasses of water a day for the next 24 hours Return to the emergency room if anything changes or gets worse - Problem List & Annotations (1) Nausea SNOMED Code(s): 917283560 Code(s): R11.0 - NAUSEA Status: Acute Current Visit: Yes (2) Dehydration SNOMED Code(s): 55179439 Code(s): E86.0 - DEHYDRATION Status: Acute Current Visit: Yes (3) Elevated BUN SNOMED Code(s): 359144367 Code(s): R79.9 - ABNORMAL FINDING OF BLOOD CHEMISTRY, UNSPECIFIED Status: Acute Current Visit: Yes - My Orders Last 24 Hours: My Active Orders 01/27/19 19:45 Sodium Chloride 0.9% [Normal Saline] 500 ml IV ASDIRECTED - Assessment/Plan Last 24 Hours: My Active Orders 01/27/19 19:45 Sodium Chloride 0.9% [Normal Saline] 500 ml IV ASDIRECTED
[2019-01-27] MEDS ORDERED: Sodium Chloride 0.9% 500 ML IV SCH (19:45)
[2019-01-27 20:17] LABS: CHLORIDE,CL 90 mmol/L (54-184); SODIUM,NA 133 mmol/L (69-191)
[2019-01-27 20:18] LABS: ANION GAP 12.9 mmol/L (10-20)
[2019-01-27] MEDS ORDERED: Metoclopramide 10 MG/2 ML SDV IVPUSH ONE (20:47)
[2019-01-27 23:27] VITALS: BP 143/75; PULSE 90
== END 2019-01-27 21:30 ==
LOC: VM.ED 19:10
DX: E86.0 Dehydration (principal); R11.0 Nausea; R79.89 Other specified abnormal findings of blood chemistry; I11.0 Hypertensive heart disease with heart failure; I50.9 Heart failure, unspecified; I25.10 Atherosclerotic heart disease of native coronary artery without angina pectoris; I25.2 Old myocardial infarction; N42.9 Disorder of prostate, unspecified; Z95.1 Presence of aortocoronary bypass graft; Z95.4 Presence of other heart-valve replacement; Z95.5 Presence of coronary angioplasty implant and graft; Z79.899 Other long term (current) drug therapy
CPT/HCPCS: 80048; 85025; 96361; 96374; 96375; 99285; J2405; J2765; J7040